=== PATIENT | male | born 1980 | race Caucasian/White ===

== ENCOUNTER → 2021-02-21 13:47 | Outpatient (BNVA) | payer SELFPAY | PROVIDERS: PCP Internal Medicine; Visit Provider Physician Assistant | DX: Z02.79 Encounter for issue of other medical certificate (principal) ==

== ENCOUNTER → 2023-02-07 14:16 | Outpatient (BNVA) | payer SELFPAY | PROVIDERS: PCP Internal Medicine; Visit Provider Physician Assistant | DX: Z02.79 Encounter for issue of other medical certificate (principal) ==

== ENCOUNTER 2023-05-04 09:57 | Outpatient (AMB) | payer OTHER, SELFPAY ==
--- NOTE | 2023-05-04 11:12 | MHC.OFFWIV ---
Intake Vital Signs 05/04/23 11:17 Height 6 ft Weight 228 lb BMI 30.9 BP 122/80 Blood Pressure Location Rt brachial Position Sitting Pulse 75 Pulse Source Pulse Oximeter Temp 98.8 F Temp Source Temporal Artery Scan Pulse Oximetry (%) 98 Oxygen Delivery Method Room Air Intake Visit Reasons: EP Rash Intake Note: pt is here for c/o rash on left side arm 2x months, itchy and if squeezed pus comes out Patient Tobacco Use Status: Current everyday Tobacco user (vape ) Allergies sertraline Adverse Reaction (Unknown, Verified 05/04/23 11:17) felt numb SERTRALINE Adverse Reaction (Unknown, Uncoded 08/22/18 00:00) FELT NUMB Wellbutrin Adverse Reaction (Unknown, Uncoded 11/06/19 00:00) sexual side effects, felt like a robot Do you need a note to return to daycare/school/sports/work: No HPI HPI Comments History of Present Illness Details This is a 42-year-old male who presents to the office today for sick visit. Patient complaining of persistent pruritic rash on his left arm for the past 2 months. He denies any new creams, soaps, detergents, lotions, foods, or medications prior to his symptom onset. He states he has been utilizing [id number] topical steroids, topical antibiotic creams, and antihistamines without much relief. He denies any fevers or chills. He denies any throat swelling, difficulty swallowing, difficulty breathing, or chest tightness/wheezing. PFSH Social History Patient Tobacco Use Status: Current everyday Tobacco user (vape ) Review of Systems Const All systems reviewed & are unremarkable except as noted in HPI and below Reports no additional complaints Eyes Reports no additional complaints ENT Reports no additional complaints Card Reports no additional complaints Resp Reports no additional complaints GI Reports no additional complaints Reports no additional complaints Musc Reports no additional complaints Skin/Breast Reports system reviewed and no additional complaints, except as documented Neuro Reports no additional complaints Psych Reports no additional complaints Endo Reports no additional complaints Octavio/Lymph Reports no additional complaints Aller/Immun Reports no additional complaints Physical Exam Vital Signs: Last Vital Signs Temp 98.8 F 05/04/23 11:17 Pulse 75 05/04/23 11:17 BP 122/80 05/04/23 11:17 Pulse Ox 98 05/04/23 11:17 Oxygen Delivery Method Room Air 05/04/23 11:17 BMI result Body Mass Index 30.9 Const General: cooperative, healthy appearing, no acute distress and well developed Orientation/consciousness: patient oriented x3 HEENT Head: Yes normal to inspection Ears: hearing grossly normal bilaterally General nose exam: Normal external nose present Face and sinus: Yes normal facial exam Mouth: Normal oral and palatal mucosa present Eyes General: appearance normal, both eyes and all related structures Pupils: Equal, round and reactive pupils present EOM: EOMs intact bilaterally Resp Effort & Inspection: normal respiratory effort and no respiratory distress Auscultation: clear to auscultation bilaterally Cardio Rate: regular rate Rhythm: regular rhythm Heart sounds: no gallops, no murmurs and no rubs Peripheral pulses: Peripheral pulses 2+ throughout GI Inspection: No distended Palpation (GI): Soft to palpation and nontender Auscultation: normal bowel sounds Skin Other: There are scattered erythematous maculopapular lesions located on patient's left arm. There is 1 larger lesion measuring approximately 2 cm x 4 cm with overlying scaling. There are other smaller lesions located on the dorsal aspect of his left hand as well as the anterior aspect of his elbow. There is no surrounding erythema or purulent drainage to suggest cellulitis. There is no fluctuance or induration to suggest abscess. There is no lymphangitis streaking. Neuro General: patient oriented x3 Cranial nerves: Yes CN's II-XII intact bilaterally and Yes Equal, round and reactive pupils present Gait exam (Neuro): Normal gait present Motor exam (neuro): 5/5 motor strength present throughout Extrem General: Yes normal to inspection, Yes full ROM and Yes no clubbing, cyanosis or edema Psych Appearance: grossly normal Mental Status: mental status grossly normal Assessment & Plan Assessment & Plan (1) Contact dermatitis: Code(s): L25.9 - Unspecified contact dermatitis, unspecified cause Plan: This is a 42-year-old male presenting to the office complaining of a pruritic rash on his left arm x2 months. History and physical most consistent with atopic dermatitis versus contact/irritant dermatitis. Patient was given a prescription for betamethasone cream twice daily to the area. He was encouraged to call his primary care physician on Saturday for possible dermatology referral for biopsy. Patient's vital signs are stable, his physical exam is otherwise benign, and he is overall nontoxic appearing. Patient is safe to be discharged home at this time. Patient was instructed to follow-up here or go to the emergency room if he were to develop fever/chills, lymphangitic streaking, or persistent/worsening symptoms. Patient verbalizes understanding and he is in agreement with the plan. Medications: New betamethasone dipropionate 0.05% 1 appl topical BID 15 grams 0RF Coding Level of Care Code Est Pt Level 3 (43086) Diagnoses Contact dermatitis L25.9
[2023-05-04 11:17] VITALS: BP 122/80; PULSE 75; TEMP 37.1; O2SAT 98; BMI 30.9
== END 2023-05-04 11:41 | disposition home or self-care (01) ==
PROVIDERS: PCP Internal Medicine; Visit Provider Physician Assistant Medical
DX: L25.9 Unspecified contact dermatitis, unspecified cause (principal)
CPT/HCPCS: 99051; 99213

== ENCOUNTER 2023-11-06 07:32 | Outpatient (AMB) | payer OTHER, SELFPAY ==
--- NOTE | 2023-11-06 07:45 | A.OFFPC_ITS ---
Vital Signs 11/06/23 07:46 Height 6 ft Weight 230 lb BMI 31.2 BP 134/80 Blood Pressure Location Lt brachial Position Sitting Pulse 81 Pulse Source Pulse Oximeter Pulse Oximetry (%) 97 Oxygen Delivery Method Room Air Intake Visit Reasons: Re establish care Intake Note: Pt is here today to re-est care Allergies sertraline Adverse Reaction (Unknown, Verified 01/02/24 08:36) felt numb SERTRALINE Adverse Reaction (Unknown, Uncoded 01/02/24 08:36) FELT NUMB Wellbutrin Adverse Reaction (Unknown, Uncoded 01/02/24 08:36) sexual side effects, felt like a robot Medication List - Last Reconciled 11/06/23 by Laura Courtney MD betamethasone dipropionate 0.05% 1 appl topical BID ketoconazole 200 mg PO DAILY Tobacco use date assessed: 11/06/23 Dental Screening Dental Screen Date: 11/06/23 Did you have a dental visit in the last 12 months?: Yes Did you have a dental problem in the last 6 months where you did not have access to dental care?: No Was dental information given to patient?: Patient has dentist HPI Re establish care HPI Details Pt presents for [employer] PE. Past medical history includes recurrent tinea corporis is treated with ketoconazole usually once a year. Patient reports having chronic anxiety slightly worse over last 2 years. Patient used to see a counselor and tried medication in the past but is not interested in taking medications. He denies depression or suicidal ideation. Patient complains of chronic joint pains, shoulders elbows knees and bilateral hand stiffness lasting a few hours in the morning. Patient also reports chronic carpal tunnel syndrome with the pain and tingling sensation worse at night right more than left. 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 1. Little interest or pleasure in doing things: more than half the days 2. Feeling down, depressed, or hopeless: several days 3. Trouble falling or staying asleep, or sleeping too much: nearly every day 4. Feeling tired or having little energy: several days 5. Poor appetite or overeating: not at all 6. Feeling bad about yourself - or that you are a failure or have let yourself or your family down: several days 7. Trouble concentrating on things, such as reading the newspaper or watching television: not at all 8. Moving or speaking so slowly that other people could have noticed. Or the opposite - being so fidgety or restless that you have been moving around a lot more than usual: not at all 9. Thoughts that you would be better off or of hurting yourself in some way: not at all Total score: 8 Depression Screening Interpretation: Negative Depression Screening Done: Yes 15087 - PHQ-9 Billing: Yes Source: Developed by Drs. Allan Roque, Mariama Trejo, Ernesto Fenton and colleagues, with an educational mili from [employer]. Thrive Questionnaire Date Thrive assessed: 11/06/23 I am a: Patient What is your living situation today?: I have a steady place to live Within the past 12 months, did the food you bought not last and you didn't have the money to get more?: Never true Within the past 12 months, did you worry whether your food would run out before you got money to buy more?: Never true THRIVE Score: 0 AUDIT C Alcohol Use Questionnaire (AUDIT-C) 1. How often do you have a drink containing alcohol?: 4 or more times a week 2. How many drinks containing alcohol do you have on a typical day when you are drinking?: 1 or 2 3. How often do you have six or more drinks on one occasion?: Weekly Total Score: 7 KORY-7 AMB Questionnaire KORY-7 Date KORY - 7 assessed: 11/06/23 Feeling nervous, anxious, or on edge: 3 = Nearly every day Not being able to stop or control worryin = Nearly every day Worrying too much about different things: 3 = Nearly every day Trouble relaxin = More than half the days Being so restless that it is hard to sit still: 0 = Not at all Becoming easily annoyed or irritable: 2 = More than half the days Feeling afraid as if something awful might happen: 3 = Nearly every day Total KORY-7 score (0-4 normal; 5-9 mild; 10-14 moderate; 15-21 severe): 16 Source: Developed by Drs. Allan Roque, Mariama Trejo, Ernesto Fenton and colleagues, with an educational mili from [employer]. Review of Systems Const All systems reviewed & are unremarkable except as noted in HPI and below Reports no additional complaints Eyes Reports no additional complaints ENT Reports no additional complaints Card Reports no additional complaints Resp Reports no additional complaints GI Reports no additional complaints Reports no additional complaints Physical exam (Primary Care) Vital Signs: Last Vital Signs Pulse 81 11/06/23 07:46 BP 134/80 11/06/23 07:46 Pulse Ox 97 11/06/23 07:46 Oxygen Delivery Method Room Air 11/06/23 07:46 BMI result Body Mass Index 31.2 Tobacco/Smoking Status: Tobacco use Status Tobacco use date assessed 11/06/23 11/06/23 07:51 Patient Tobacco Use Status Former Tobacco user (vape ) 11/06/23 08:21 e-Cigarette/Vaping Use Currently Using 11/06/23 08:21 PHQ-9: PHQ-9 Score PHQ-9: Total score 8 11/07/23 08:13 Depression Screening Interpretation: Negative Thrive Assessment: Date of Thrive Assessment Date Thrive assessed 11/06/23 11/06/23 15:34 Const General: no acute distress HENMT Head: Yes normal to inspection Ears: hearing grossly normal bilaterally Face and sinus: Yes normal facial exam Mouth: Normal oral and palatal mucosa present Eyes General: appearance normal, both eyes and all related structures Neck Neck: Yes no lymphadenopathy and Yes supple Resp Effort & Inspection: normal respiratory effort Auscultation: clear to auscultation bilaterally Cardio Rhythm: regular rhythm Heart sounds: S1 normal heart sound present and S2 normal heart sound present GI Inspection: Yes normal to inspection Palpation (GI): Soft to palpation Percussion: Yes normal to percussion Auscultation: normal bowel sounds Extrem Other: Slightly decreased range of motion of both shoulders, there are no hand joint tenderness erythema or swelling, General: Yes no clubbing, cyanosis or edema Right upper extremity: wrist (Tinel's positive b/l) Assessment and Plan Assessment & Plan (1) Annual physical exam: Code(s): Z00.00 - Encounter for general adult medical examination without abnormal findings Plan: Well-balanced diet regular physical activity discussed with the patient he will return for fasting blood work. (2) Arthralgia: Code(s): M25.50 - Pain in unspecified joint Plan: For current arthralgia bilateral hand x-rays will be obtained, arthritis panel will be checked (3) History of appendectomy: Code(s): Z90.49 - Acquired absence of other specified parts of digestive tract (4) Ex-smoker: Code(s): Z87.891 - Personal history of nicotine dependence (5) Tinea corporis: Code(s): B35.4 - Tinea corporis Plan: Continue ketoconazole as needed (6) Anxiety: Code(s): F41.9 - Anxiety disorder, unspecified Plan: Stress management discussed with the patient he has not interested in taking medications. Patient will be referred to counseling. Follow-up in 2 months (7) Eczema: Code(s): L30.9 - Dermatitis, unspecified Plan: Continue betamethasone cream and referred to dermatology (8) Carpal tunnel syndrome on both sides: Code(s): G56.03 - Carpal tunnel syndrome, bilateral upper limbs Plan: Obtain EMG Orders: Orders Comprehensive [place]. Panel Fast 11/09/23 Z00.00 - Encounter for general adult medical examination without abnormal findings, M25.50 - Pain in unspecified joint, Z98.890 - Other specified postprocedural states, Z90.49 - Acquired absence of other specified parts of digestive tract, Z87.891 - Personal history of nicotine dependence C Reactive Protein 11/09/23 Z00.00 - Encounter for general adult medical examination without abnormal findings, M25.50 - Pain in unspecified joint, Z98.890 - Other specified postprocedural states, Z90.49 - Acquired absence of other specified parts of digestive tract, Z87.891 - Personal history of nicotine dependence Complete Blood Count Auto Diff 11/09/23 Z00.00 - Encounter for general adult medical examination without abnormal findings, M25.50 - Pain in unspecified joint, Z98.890 - Other specified postprocedural states, Z90.49 - Acquired absence of other specified parts of digestive tract, Z87.891 - Personal history of nicotine dependence Lipid Panel 11/09/23 Z00.00 - Encounter for general adult medical examination without abnormal findings, M25.50 - Pain in unspecified joint, Z98.890 - Other specified postprocedural states, Z90.49 - Acquired absence of other specified parts of digestive tract, Z87.891 - Personal history of nicotine dependence Rheumatoid Factor 11/09/23 Z00.00 - Encounter for general adult medical examination without abnormal findings, M25.50 - Pain in unspecified joint, Z98.890 - Other specified postprocedural states, Z90.49 - Acquired absence of other specified parts of digestive tract, Z87.891 - Personal history of nicotine dependence UA w Microscopic 11/09/23 Z00.00 - Encounter for general adult medical examination without abnormal findings, M25.50 - Pain in unspecified joint, Z98.890 - Other specified postprocedural states, Z90.49 - Acquired absence of other specified parts of digestive tract, Z87.891 - Personal history of nicotine dependence NE electromyogram (EMG) 11/06/23 G56.03 - Carpal tunnel syndrome, bilateral upper limbs Hepatitis B,C Profile 11/09/23 M25.50 - Pain in unspecified joint Cyclic Citrullinated Peptide 11/09/23 M25.50 - Pain in unspecified joint DONTAE Reflex Titer and Pattern 11/09/23 M25.50 - Pain in unspecified joint Referrals Counseling Referral F41.9 - Anxiety disorder, unspecified Dermatology Referral L30.9 - Dermatitis, unspecified Medications: New ketoconazole 200 mg PO DAILY 5 tabs 0RF ketoconazole 200 mg PO DAILY 5 tabs 3RF Refilled betamethasone dipropionate 0.05% 1 appl topical BID 15 grams 0RF Coding Level of Care Code New Pt Prev Care 40-64y(58628) Diagnoses Annual physical exam Z00.00 Arthralgia M25.50 History of appendectomy Z90.49 Ex-smoker Z87.891 Tinea corporis B35.4 Anxiety F41.9 Eczema L30.9 Carpal tunnel syndrome on both sides G56.03
[2023-11-06 07:46] VITALS: BP 134/80; PULSE 81; O2SAT 97; BMI 31.2
== END 2023-11-06 08:40 | disposition home or self-care (01) ==
PROVIDERS: PCP Internal Medicine; Visit Provider Internal Medicine
DX: Z00.00 Encounter for general adult medical examination without abnormal findings (principal); M25.50 Pain in unspecified joint; Z90.49 Acquired absence of other specified parts of digestive tract; Z87.891 Personal history of nicotine dependence; B35.4 Tinea corporis; F41.9 Anxiety disorder, unspecified; L30.9 Dermatitis, unspecified; G56.03 Carpal tunnel syndrome, bilateral upper limbs
CPT/HCPCS: 99386

== ENCOUNTER 2023-11-09 09:00 | Outpatient (REF) | payer OTHER, SELFPAY ==
--- NOTE | ~2023-11-09 | XR_ITS ---
EXAMINATION: XR HAND, RIGHT CLINICAL INFORMATION: Pain. COMPARISON: None available. TECHNIQUE: PA, lateral, and oblique views of the right hand. FINDINGS: The bones and soft tissues are normal. No acute fracture or dislocation is seen. There is old, healed fracture of the shaft of the right fifth metacarpal bone, with mild residual angulation and bony remodeling. Alignment is anatomic. There is a neutral ulnar variance. Joint spaces are maintained. No erosions or soft tissue calcifications. XR/XR hand RT min 3V IMPRESSION: Unremarkable right hand. EXAMINATION: XR HAND, LEFT CLINICAL INFORMATION: Pain. COMPARISON: None available. TECHNIQUE: PA, lateral, and oblique views of the left hand. FINDINGS: The bones and soft tissues are normal. No fracture. Alignment is anatomic. Joint spaces are maintained. No erosions or soft tissue calcifications. IMPRESSION: Normal left hand.
--- NOTE | ~2023-11-09 | XR_ITS ---
EXAMINATION: XR HAND, RIGHT CLINICAL INFORMATION: Pain. COMPARISON: None available. TECHNIQUE: PA, lateral, and oblique views of the right hand. FINDINGS: The bones and soft tissues are normal. No acute fracture or dislocation is seen. There is old, healed fracture of the shaft of the right fifth metacarpal bone, with mild residual angulation and bony remodeling. Alignment is anatomic. There is a neutral ulnar variance. Joint spaces are maintained. No erosions or soft tissue calcifications. XR/XR hand LT min 3V IMPRESSION: Unremarkable right hand. EXAMINATION: XR HAND, LEFT CLINICAL INFORMATION: Pain. COMPARISON: None available. TECHNIQUE: PA, lateral, and oblique views of the left hand. FINDINGS: The bones and soft tissues are normal. No fracture. Alignment is anatomic. Joint spaces are maintained. No erosions or soft tissue calcifications. IMPRESSION: Normal left hand.
[2023-11-09 11:10] LABS: MANUAL DIFF FLAG NO
[2023-11-09 11:21] LABS: Basophils Absolute Auto 0.1 X10*3/uL (0.0-0.2); Basophils Percent Auto 1.2 % (0-2); Eosinophils Absolute Auto 0.3 X10*3/uL (0.0-0.4); Eosinophils Percent Auto 4.3 % (0-4); Hemoglobin 15.4 g/dl (14.0-18.0); Imm Gran Abs Auto 0.07 X10*3/uL (0.00-0.03); Lymphocytes Absolute Auto 1.9 X10*3/uL (1.2-4.9); Lymphocytes Percent Auto 26.7 % (20-40); Mean Corpuscular Hemoglobin 30.3 pg (27.0-33.0); Mean Corpuscular Volume 86.4 fL (80.0-98.0); Mean Platelet Volume 11.4 fL (9.4-12.4); Monocytes Absolute Auto 0.7 X10*3/uL (0.1-1.2); Monocytes Percent Auto 10.2 % (2-11); Neutrophils Absolute Auto 4.1 x10*3/uL (2.0-8.3); Neutrophils Percent Auto 56.6 % (45-73); Platelet Count 201 X10*3/uL (160-400); Red Blood Count 5.09 X10*6/uL (4.60-5.80); Red Cell Distribution Width 13.3 % (11.0-16.0); White Blood Count 7.3 X10*3/uL (4.8-10.8)
[2023-11-09 11:29] LABS: Appearance Urine Clear; Color Urine Yellow; Glucose Urine UA Negative (Negative); Leukocyte Esterase Urine Negative (Negative); Nitrite Urine Negative (Negative); PH 7.5 (5.0-9.0); Urine Blood Negative (Negative); Urine Ketones Negative (Negative); Urine Protein Trace mg/dL (Neg-Trace)
[2023-11-09 11:36] LABS: Bacteria Urine None Seen (None Seen); Hyaline Casts Urine 0-2 /LPF (0-2); RBC Urine 0-2 /HPF (0-2); Squamous Epithelial Cell Urine 0-2 /HPF (0-2); WBC Urine 0-5 /HPF (0-5)
[2023-11-09 11:46] LABS: Rheumatoid Factor < 13.0 IU/mL (<15.0)
[2023-11-09 11:51] LABS: Alanine Aminotransferase 40 U/L (0-40); Albumin Level 4.5 g/dL (3.5-5.0); Alkaline Phosphatase 46 U/L (39-117); Anion Gap 14 (12-20); Aspartate Amino Transferase 25 U/L (5-37); Bilirubin Total 0.6 mg/dL (0.0-1.0); Blood Urea Nitrogen 12 mg/dL (9-16); C Reactive Protein < 0.10 mg/dL (< or = 0.50); Calcium 9.7 mg/dL (8.4-10.2); Carbon Dioxide 26 mmol/L (22-29); Chloride 106 mmol/L (96-108); Cholesterol 273 mg/dL (<200); Estimated Glomerular Filt Rate > 60; Glucose Fasting 95 mg/dL (60-99); HDL Cholesterol 44 mg/dL (>40); Potassium 4.3 mmol/L (3.3-5.1); Sodium 142 mmol/L (135-145); Total Protein 7.5 g/dL (6.5-8.0); Triglycerides 415 mg/dL (<150)
[2023-11-11 04:33] LABS: HBc Num1 0.09 S/CO (0.00-0.79); HBsAGNum1 0.37 S/CO (0.00-0.99); Hepatitis B Core Antibody Nonreactive (Nonreactive); Hepatitis B Surface Antigen Negative (Negative); ~HepC Num1 0.14 S/CO (0.00-0.79); ~Hepatitis B Surface Antibody NONREACTIVE (Nonreactive); ~Hepatitis C Antibody Nonreactive (Nonreactive)
[2023-11-11 18:19] LABS: Cyclic Citrullinated Peptide <16 UNITS
[2023-11-14 09:53] LABS: Anti Nuclear Antibody Screen POSITIVE (NEGATIVE); Anti Nuclear Antibody Titer 1:40 titer
== END 2023-11-09 09:01 | disposition home or self-care (01) ==
LOC: HO.HMGCX 09:00
PROVIDERS: PCP Internal Medicine; Visit Provider Internal Medicine
DX: M79.641 Pain in right hand (principal); M79.642 Pain in left hand; Z98.890 Other specified postprocedural states; Z90.49 Acquired absence of other specified parts of digestive tract; Z87.891 Personal history of nicotine dependence; Z13.6 Encounter for screening for cardiovascular disorders; Z00.00 Encounter for general adult medical examination without abnormal findings
CPT/HCPCS: 36415; 73130; 80053; 80061; 81001; 85025; 86038; 86039; 86140; 86200; 86431; 86704; 86706; 86803; 87340

== ENCOUNTER 2023-11-22 08:16 | Outpatient (REF) | payer OTHER, SELFPAY ==
--- NOTE | 2023-11-22 08:23 | EMG_ITS ---
Chief complaint: Wakes up with hand numbness, can occur at work as well, especially with some repetitive motion, bilateral. Right worse than left. Positive DONTAE, waiting to see Rheumatology. Reason for referral: Evaluate for Carpal Tunnel Syndrome Referred by: Dr. Courtney Procedure done: Bilateral upper extremities NCS/EMG Precautions and/or limitations: None The limb temperature was monitored continuously and remained between 32-36 degrees C during the performance of the NCS. Nerve Conduction Studies Anti Sensory Summary Table ?Stim Site NR Onset (ms) Norm Onset (ms) Peak (ms) Norm Peak (ms) O-P Amp (?V) Norm O-P Amp Site1 Site2 Delta-0 (ms) Dist (cm) Rob (m/s) Norm Rob (m/s) Left Median Anti Sensory (2nd Digit) Wrist ? 2.7 3.4 <3.6 34.2 >10 Wrist 2nd Digit 2.7 14.0 52 Right Median Anti Sensory (2nd Digit) Wrist ? 2.8 3.7 <3.6 26.5 >10 Wrist 2nd Digit 2.8 14.0 50 Left Ulnar Anti Sensory (5th Digit) Wrist ? 2.4 2.9 <3.7 30.9 >15.0 Wrist 5th Digit 2.4 14.0 58 Right Ulnar Anti Sensory (5th Digit) Wrist ? 2.2 2.8 <3.7 35.1 >15.0 Wrist 5th Digit 2.2 14.0 64 Motor Summary Table ?Stim Site NR Onset (ms) Norm Onset (ms) O-P Amp (mV) Norm O-P Amp iAmp (mV) Amp (1st) (%) Site1 Site2 Delta-0 (ms) Dist (cm) Rob (m/s) Norm Rob (m/s) Left Median Motor (Abd Poll Brev) Wrist ? 3.6 <3.9 7.6 >4.5 9.1 100.0 Elbow Wrist 4.3 24.0 56 >45 Elbow ? 7.9 8.9 10.6 117.1 Right Median Motor (Abd Poll Brev) Wrist ? 3.6 <3.9 13.1 >4.5 14.8 100.0 Elbow Wrist 4.5 23.0 51 >45 Elbow ? 8.1 11.3 13.6 86.3 Left Ulnar Motor (Abd Dig Minimi) Wrist ? 2.7 <3.0 8.3 >5 9.0 100.0 B Elbow Wrist 3.5 21.0 60 >45 B Elbow ? 6.2 7.8 8.6 94.0 A Elbow B Elbow 1.5 10.0 67 >45 A Elbow ? 7.7 7.9 8.8 95.2 Right Ulnar Motor (Abd Dig Minimi) Wrist ? 2.6 <3.0 10.8 >5 12.1 100.0 B Elbow Wrist 3.8 24.0 63 >45 B Elbow ? 6.4 9.2 10.6 85.2 A Elbow B Elbow 1.2 10.0 83 >45 A Elbow ? 7.6 8.5 10.1 78.7 Comparison Summary Table ?Stim Site NR Peak (ms) Norm Peak (ms) P-T Amp (?V) Site1 Site2 Delta-P (ms) Norm Delta (ms) Left Median/Radial Dig I Comparison (Digit 1 - 10cm) Median ? 2.8 <2.9 46.1 Median Radial -0.3 Radial ? 3.1 <2.8 38.2 Right Median/Radial Dig I Comparison (Digit 1 - 10cm) Median ? 3.0 <2.9 42.2 Median Radial 0.6 Radial ? 2.4 <2.8 17.5 EMG ?Side Muscle Nerve Root Ins Act Fibs Psw Amp Dur Poly Recrt Int Pat Comment Right 1stDorInt Ulnar C8-T1 Nml Nml Nml Nml Nml 0 Nml Complete Right FlexCarRad Median C6-7 Nml Nml Nml Nml Nml 0 Nml Complete Right Biceps Musculocut C5-6 Nml Nml Nml Nml Nml 0 Nml Complete Right Triceps Radial C6-7-8 Nml Nml Nml Nml Nml 0 Nml Complete Right Deltoid Axillary C5-6 Nml Nml Nml Nml Nml 0 Nml Complete Left 1stDorInt Ulnar C8-T1 Nml Nml Nml Nml Nml 0 Nml Complete Left FlexCarRad Median C6-7 Nml Nml Nml Nml Nml 0 Nml Complete Left Biceps Musculocut C5-6 Nml Nml Nml Nml Nml 0 Nml Complete Left Triceps Radial C6-7-8 Nml Nml Nml Nml Nml 0 Nml Complete Left Deltoid Axillary C5-6 Nml Nml Nml Nml Nml 0 Nml Complete FINDINGS: Right median sensory nerve showed prolonged peak latency. Significant interlatency difference seen between right median and radial sensory nerves. All other nerves tested were within normal. Concentric needle EMG was performed in selected muscles of the bilateral upper extremities. Study did not reveal signs of electric abnormalities as shown in the table below. IMPRESSION: 1. This is an abnormal study. 2. There is electrodiagnostic evidence for right mild median neuropathy at the wrist, consistent with carpal tunnel syndrome. 3. There is no electrodiagnostic evidence for ulnar neuropathy, brachial plexopathy, or cervical radiculopathy. 4. There is no electrodiagnostic evidence for median neuropathy on the left. Thank you for your kind referral. Raisa Broderick MD, JORGE Board Certified, [place] [employer] and [employer] (ABPMR) Board Certified, [place] [employer] Electro[employer]ostic [employer] (ABEM) CODIN 34186 x 2 MTDD
== END 2023-11-22 08:17 | disposition home or self-care (01) ==
LOC: HO.NEURO 08:16
PROVIDERS: PCP Internal Medicine; Visit Provider Internal Medicine
DX: G56.03 Carpal tunnel syndrome, bilateral upper limbs (principal)
CPT/HCPCS: 95886; 95911

== ENCOUNTER → 2023-11-22 08:23 | Outpatient (BNV) | payer OTHER, SELFPAY | PROVIDERS: PCP Internal Medicine; Visit Provider Physical Medicine & Rehabilitation | DX: G56.03 Carpal tunnel syndrome, bilateral upper limbs (principal); G56.13 Other lesions of median nerve, bilateral upper limbs | CPT/HCPCS: 95886; 95911 ==

== ENCOUNTER 2023-12-05 11:50 | Outpatient (AMB) | payer OTHER, SELFPAY ==
[2023-12-05 12:18] VITALS: BP 120/74; PULSE 93; O2SAT 97; BMI 31.2
--- NOTE | 2023-12-05 12:18 | A.OFFPC_ITS ---
Vital Signs 12/05/23 12:18 Height 6 ft Weight 230 lb BMI 31.2 BP 120/74 Blood Pressure Location Rt brachial Position Sitting Pulse 93 Pulse Source Pulse Oximeter Pulse Oximetry (%) 97 Oxygen Delivery Method Room Air Intake Visit Reasons: Follow up after labs discuss treatment Intake Note: Pt is here today for a follow up visit on lab results. Allergies sertraline Adverse Reaction (Unknown, Verified 12/05/23 12:47) felt numb SERTRALINE Adverse Reaction (Unknown, Uncoded 12/05/23 12:47) FELT NUMB Wellbutrin Adverse Reaction (Unknown, Uncoded 12/05/23 12:47) sexual side effects, felt like a robot Medication List - Last Reconciled 12/05/23 by Laura Courtney MD betamethasone dipropionate 0.05% 1 appl topical BID Tobacco use date assessed: 12/05/23 Dental Screening Dental Screen Date: 11/06/23 HPI Follow up after labs discuss treatment HPI Details Patient presents for the follow-up of blood work. He reports eating red meat regularly and drinking alcohol daily. Patient reports general body aches including both shoulders and hands preventing him from getting restful sleep. He has an appointment with compressed yeast supervisor next month. Patient denies increase stress and feels depressed because of his chronic body pain, but denies suicidal ideation. 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 Allan Roque, Mariama Trejo, Ernesto Fenton and colleagues, with an educational mili from [employer] Review of Systems Const All systems reviewed & are unremarkable except as noted in HPI and below Eyes Reports no additional complaints ENT Reports no additional complaints Resp Reports no additional complaints GI Reports no additional complaints Reports no additional complaints Physical exam (Primary Care) Vital Signs: Last Vital Signs Pulse 93 12/05/23 12:18 BP 120/74 12/05/23 12:18 Pulse Ox 97 12/05/23 12:18 Oxygen Delivery Method Room Air 12/05/23 12:18 BMI result Body Mass Index 31.2 Tobacco/Smoking Status: Tobacco use Status Tobacco use date assessed 12/05/23 12/05/23 12:49 Patient Tobacco Use Status Former Tobacco user (vape ) 12/05/23 12:18 e-Cigarette/Vaping Use Currently Using 12/05/23 12:18 Thrive Assessment: Date of Thrive Assessment Date Thrive assessed 11/06/23 12/05/23 12:18 Const General: no acute distress Neck Neck: Yes supple Resp Effort & Inspection: normal respiratory effort Auscultation: clear to auscultation bilaterally Cardio Rhythm: regular rhythm Heart sounds: S1 normal heart sound present and S2 normal heart sound present Assessment and Plan Assessment & Plan (1) Hyperlipidemia: Code(s): E78.5 - Hyperlipidemia, unspecified Plan: Low-cholesterol diet increase physical activity fish oil supplement discussed with the patient. He was advised to avoid drinking alcohol daily. Lipid profile will be checked in 3 months (2) Arthralgia: Code(s): M25.50 - Pain in unspecified joint Plan: For dental arthralgia patient had negative arthritis workup except weakly positive DONTAE and negative x-ray of both hands. He has an appointment with compressed yeast supervisor next month Orders: Orders Lipid Panel 3 Months E78.5 - Hyperlipidemia, unspecified LDL Cholesterol Direct 3 Months E78.5 - Hyperlipidemia, unspecified Coding Level of Care Code Est Pt Level 3 (26913) Diagnoses Hyperlipidemia E78.5 Arthralgia M25.50
== END 2023-12-05 13:36 | disposition home or self-care (01) ==
PROVIDERS: PCP Internal Medicine; Visit Provider Internal Medicine
DX: E78.5 Hyperlipidemia, unspecified (principal); M25.50 Pain in unspecified joint
CPT/HCPCS: 99213

== ENCOUNTER 2024-01-02 08:33 | Outpatient (AMB) | payer OTHER, SELFPAY ==
--- NOTE | 2024-01-02 08:35 | MHC.OFFVIS ---
Vital Signs 01/02/24 08:37 Height 6 ft Weight 226 lb 3.108 oz BMI 30.7 BP 102/64 Blood Pressure Location Rt brachial Position Sitting Pulse 98 Pulse Source Pulse Oximeter Pulse Oximetry (%) 98 Oxygen Delivery Method Room Air Intake Visit Reasons: Joint Pain/CM Intake Note: New patient presents today for +DONTAE consult. C/o joint pain primarily hiren hand, hiren wrist, hiren shoulder, and right knee pain Symptoms started approx 15 years ago, shoulders and right knee began about 8 months ago Has tried cortisone injection on both wrists, OTC pain killers , braces, topicals, vibrating crystals, vitamins, hot and cold compressions EMG done at [facility] about a month ago. 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 The condition started about 15 years ago with bilateral hand and wrist pain, the pain is usually worse with minor activity such as holding his phone but he has no issues with doing more strenuous activity such as moving boxes. He has tried numerous therapies over the years such as [id number]. Killers like Tylenol Advil, Aleve, he also tried CBD oil, vibrating crystals, glucosamine, fish oil, hot and cold compresses. None of that helped. He tried wrist splints they did not help. He also received injections on the palmar aspect of his wrists which did not help, 1 injection cause numbness so he stopped getting injections. Stated that what sometimes helps is hand and wrist compresses at night. What got him concerned is bilateral shoulder stiffness and cracking with certain movements that started about 8 months ago also intermittent right knee cracking and pain. Denies any joint swelling. Denies any morning stiffness. States that he gets a rash in areas where he sweats 2 to 3 times a year that rapidly goes away with ketoconazole. He is unaware of any family history of an autoimmune rheumatic disease. Denies any history of DVT/PE. Denies any fevers or weight loss. 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 Patient Tobacco Use Status: Former Tobacco user (vape ) e-Cigarette/Vaping Use: Currently Using service: No Current occupational status: employed Cognitive needs: No Hearing needs: No Vision needs: Yes Review of Systems Const Denies fever(s), Denies weakness and Denies weight loss Resp Denies cough Musc Reports arthralgias, Denies joint swelling and Denies stiffness Neuro Denies weakness Psych Reports anxiety Physical Exam Vital Signs: Last Vital Signs Pulse 98 01/02/24 08:37 BP 102/64 01/02/24 08:37 Pulse Ox 98 01/02/24 08:37 Oxygen Delivery Method Room Air 01/02/24 08:37 BMI result Body Mass Index 30.7 Const General: cooperative, healthy appearing and comfortable Nutritional Appearance: overweight Orientation/consciousness: patient oriented x3 Limitations: no limitations HEENT Head: Yes normocephalic and Yes atraumatic Mouth: moist mucous membranes Resp Effort & Inspection: normal respiratory effort and able to speak in complete sentences Auscultation: clear to auscultation bilaterally Cardio Rate: regular rate Rhythm: regular rhythm Skin General skin exam: no rashes or lesions noted Neuro General: patient oriented x3 Extrem Other: No active synovitis 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 Normal nailfold capillaroscopy Normal range of motion of hands, wrists, elbows and shoulders without pain Positive empty can test on the right Negative Speed's test on the right Negative infraspinatus test bilaterally Positive empty can test on the left No knee pain with full flexion and extension bilaterally No knee crepitus today bilaterally Assessment & Plan Assessment & Plan (1) DONTAE positive: Code(s): R76.8 - Other specified abnormal immunological findings in serum Category: Medical Plan: This is a 43-year-old male who presents for evaluation of a positive DONTAE in the setting of polyarthralgia. He has positive DONTAE 1-40 in a dfs pattern. Labs showed negative DONTAE/RF with normal CRP. Do not see any evidence of an underlying autoimmune rheumatic disease upon evaluation. DONTAE 1-40 is generally considered negative and is of unclear significance. There might be some component of minimal degenerative arthritis as well as mild rotator cuff tendinopathy. Possible fibromyalgia. Will check x-rays of involved joints. Follow-up in 6 weeks Plan I spent 47 minutes reviewing patient's chart, evaluating patient, ordering diagnostic workup, counseling patient and documenting in the chart Orders: Orders XR cervical spine 4V Today M25.50 - Pain in unspecified joint XR shoulder LT min 2V Today M25.50 - Pain in unspecified joint XR shoulder RT min 2V Today M25.50 - Pain in unspecified joint XR knee LT 3V Today M25.50 - Pain in unspecified joint XR knee RT 3V Today M25.50 - Pain in unspecified joint XR knee standing BI Today M25.50 - Pain in unspecified joint Coding Level of Care Code New Pt Level 4 (67667) Diagnoses DONTAE positive R76.8
[2024-01-02 08:37] VITALS: BP 102/64; PULSE 98; O2SAT 98; BMI 30.7
== END 2024-01-02 09:36 | disposition home or self-care (01) ==
PROVIDERS: PCP Internal Medicine; Visit Provider Student in an Organized Health Care Education/Training Program
DX: R76.8 Other specified abnormal immunological findings in serum (principal)
CPT/HCPCS: 99204

== ENCOUNTER → 2024-01-02 08:33 | Outpatient (BNVA) | payer OTHER, SELFPAY | PROVIDERS: PCP Internal Medicine; Visit Provider Student in an Organized Health Care Education/Training Program ==

== ENCOUNTER 2024-01-29 14:31 | Outpatient (REF) | payer OTHER, SELFPAY ==
--- NOTE | ~2024-01-29 | XR_ITS ---
EXAMINATION: XR CERVICAL SPINE XR SHOULDER, BILATERAL XR KNEE, BILATERAL CLINICAL INFORMATION: Pain in unspecified joint. COMPARISON: None available. TECHNIQUE: 5 views of the cervical spine, 4 views of each shoulder, AP standing, tunnel, lateral and sunrise views of each knee. FINDINGS: Cervical Spine: Mild degenerative changes with loss of disc space height at C5-C6. Limited visualization of C7 due to overlying bony and soft tissue structures. Alignment preserved. Left Shoulder: Mild osteoarthritic changes in the acromioclavicular joint. Glenohumeral alignment preserved. No abnormal soft tissue calcifications appreciated adjacent to the humeral head. Mild hypertrophic change along the inferior aspect of the glenoid. Right Shoulder: Mild osteoarthritic changes in the acromioclavicular joint. Glenohumeral alignment preserved. Amorphous soft tissue calcification adjacent to the right greater tuberosity suggests rotator cuff pathology. Right Knee: Moderate right joint effusion. Mild narrowing of the medial compartment with tiny medial marginal and posterior patellar osteophytes. Left Knee: Moderate joint effusion. Mild narrowing of the medial compartment with tiny medial marginal and posterior patellar osteophytes. XR/XR shoulder RT min 2V IMPRESSION: 1. Mild cervical spondylosis most notable at C5-C6. 2. Mild degenerative changes in the left shoulder. 3. Amorphous soft tissue calcification adjacent to the right greater tuberosity suggests rotator cuff pathology. Mild degenerative changes in the right glenohumeral and acromioclavicular joints. 4. Moderate joint effusions in the bilateral knees with mild degenerative changes.
--- NOTE | ~2024-01-29 | XR_ITS ---
EXAMINATION: XR CERVICAL SPINE XR SHOULDER, BILATERAL XR KNEE, BILATERAL CLINICAL INFORMATION: Pain in unspecified joint. COMPARISON: None available. TECHNIQUE: 5 views of the cervical spine, 4 views of each shoulder, AP standing, tunnel, lateral and sunrise views of each knee. FINDINGS: Cervical Spine: Mild degenerative changes with loss of disc space height at C5-C6. Limited visualization of C7 due to overlying bony and soft tissue structures. Alignment preserved. Left Shoulder: Mild osteoarthritic changes in the acromioclavicular joint. Glenohumeral alignment preserved. No abnormal soft tissue calcifications appreciated adjacent to the humeral head. Mild hypertrophic change along the inferior aspect of the glenoid. Right Shoulder: Mild osteoarthritic changes in the acromioclavicular joint. Glenohumeral alignment preserved. Amorphous soft tissue calcification adjacent to the right greater tuberosity suggests rotator cuff pathology. Right Knee: Moderate right joint effusion. Mild narrowing of the medial compartment with tiny medial marginal and posterior patellar osteophytes. Left Knee: Moderate joint effusion. Mild narrowing of the medial compartment with tiny medial marginal and posterior patellar osteophytes. XR/XR cervical spine 4V IMPRESSION: 1. Mild cervical spondylosis most notable at C5-C6. 2. Mild degenerative changes in the left shoulder. 3. Amorphous soft tissue calcification adjacent to the right greater tuberosity suggests rotator cuff pathology. Mild degenerative changes in the right glenohumeral and acromioclavicular joints. 4. Moderate joint effusions in the bilateral knees with mild degenerative changes.
--- NOTE | ~2024-01-29 | XR_ITS ---
EXAMINATION: XR CERVICAL SPINE XR SHOULDER, BILATERAL XR KNEE, BILATERAL CLINICAL INFORMATION: Pain in unspecified joint. COMPARISON: None available. TECHNIQUE: 5 views of the cervical spine, 4 views of each shoulder, AP standing, tunnel, lateral and sunrise views of each knee. FINDINGS: Cervical Spine: Mild degenerative changes with loss of disc space height at C5-C6. Limited visualization of C7 due to overlying bony and soft tissue structures. Alignment preserved. Left Shoulder: Mild osteoarthritic changes in the acromioclavicular joint. Glenohumeral alignment preserved. No abnormal soft tissue calcifications appreciated adjacent to the humeral head. Mild hypertrophic change along the inferior aspect of the glenoid. Right Shoulder: Mild osteoarthritic changes in the acromioclavicular joint. Glenohumeral alignment preserved. Amorphous soft tissue calcification adjacent to the right greater tuberosity suggests rotator cuff pathology. Right Knee: Moderate right joint effusion. Mild narrowing of the medial compartment with tiny medial marginal and posterior patellar osteophytes. Left Knee: Moderate joint effusion. Mild narrowing of the medial compartment with tiny medial marginal and posterior patellar osteophytes. XR/XR knee RT 4V IMPRESSION: 1. Mild cervical spondylosis most notable at C5-C6. 2. Mild degenerative changes in the left shoulder. 3. Amorphous soft tissue calcification adjacent to the right greater tuberosity suggests rotator cuff pathology. Mild degenerative changes in the right glenohumeral and acromioclavicular joints. 4. Moderate joint effusions in the bilateral knees with mild degenerative changes.
--- NOTE | ~2024-01-29 | XR_ITS ---
EXAMINATION: XR CERVICAL SPINE XR SHOULDER, BILATERAL XR KNEE, BILATERAL CLINICAL INFORMATION: Pain in unspecified joint. COMPARISON: None available. TECHNIQUE: 5 views of the cervical spine, 4 views of each shoulder, AP standing, tunnel, lateral and sunrise views of each knee. FINDINGS: Cervical Spine: Mild degenerative changes with loss of disc space height at C5-C6. Limited visualization of C7 due to overlying bony and soft tissue structures. Alignment preserved. Left Shoulder: Mild osteoarthritic changes in the acromioclavicular joint. Glenohumeral alignment preserved. No abnormal soft tissue calcifications appreciated adjacent to the humeral head. Mild hypertrophic change along the inferior aspect of the glenoid. Right Shoulder: Mild osteoarthritic changes in the acromioclavicular joint. Glenohumeral alignment preserved. Amorphous soft tissue calcification adjacent to the right greater tuberosity suggests rotator cuff pathology. Right Knee: Moderate right joint effusion. Mild narrowing of the medial compartment with tiny medial marginal and posterior patellar osteophytes. Left Knee: Moderate joint effusion. Mild narrowing of the medial compartment with tiny medial marginal and posterior patellar osteophytes. XR/XR shoulder LT min 2V IMPRESSION: 1. Mild cervical spondylosis most notable at C5-C6. 2. Mild degenerative changes in the left shoulder. 3. Amorphous soft tissue calcification adjacent to the right greater tuberosity suggests rotator cuff pathology. Mild degenerative changes in the right glenohumeral and acromioclavicular joints. 4. Moderate joint effusions in the bilateral knees with mild degenerative changes.
--- NOTE | ~2024-01-29 | XR_ITS ---
EXAMINATION: XR CERVICAL SPINE XR SHOULDER, BILATERAL XR KNEE, BILATERAL CLINICAL INFORMATION: Pain in unspecified joint. COMPARISON: None available. TECHNIQUE: 5 views of the cervical spine, 4 views of each shoulder, AP standing, tunnel, lateral and sunrise views of each knee. FINDINGS: Cervical Spine: Mild degenerative changes with loss of disc space height at C5-C6. Limited visualization of C7 due to overlying bony and soft tissue structures. Alignment preserved. Left Shoulder: Mild osteoarthritic changes in the acromioclavicular joint. Glenohumeral alignment preserved. No abnormal soft tissue calcifications appreciated adjacent to the humeral head. Mild hypertrophic change along the inferior aspect of the glenoid. Right Shoulder: Mild osteoarthritic changes in the acromioclavicular joint. Glenohumeral alignment preserved. Amorphous soft tissue calcification adjacent to the right greater tuberosity suggests rotator cuff pathology. Right Knee: Moderate right joint effusion. Mild narrowing of the medial compartment with tiny medial marginal and posterior patellar osteophytes. Left Knee: Moderate joint effusion. Mild narrowing of the medial compartment with tiny medial marginal and posterior patellar osteophytes. XR/XR knee LT 4V IMPRESSION: 1. Mild cervical spondylosis most notable at C5-C6. 2. Mild degenerative changes in the left shoulder. 3. Amorphous soft tissue calcification adjacent to the right greater tuberosity suggests rotator cuff pathology. Mild degenerative changes in the right glenohumeral and acromioclavicular joints. 4. Moderate joint effusions in the bilateral knees with mild degenerative changes.
== END 2024-01-29 14:32 | disposition home or self-care (01) ==
LOC: HO.XRAY 14:31
PROVIDERS: PCP Internal Medicine; Visit Provider Student in an Organized Health Care Education/Training Program
DX: M54.2 Cervicalgia (principal); M25.511 Pain in right shoulder; M25.512 Pain in left shoulder; M25.561 Pain in right knee; M25.562 Pain in left knee
CPT/HCPCS: 72050; 73030; 73564

== ENCOUNTER 2024-02-13 12:21 | Outpatient (AMB) | payer OTHER, SELFPAY ==
--- NOTE | 2024-02-13 12:38 | MHC.OFFVIS ---
Vital Signs 02/13/24 12:42 Height 6 ft Weight 218 lb 7.649 oz BMI 29.6 BP 122/70 Blood Pressure Location Rt brachial Position Sitting Pulse 98 Pulse Source Pulse Oximeter Pulse Oximetry (%) 99 Oxygen Delivery Method Room Air Intake Visit Reasons: DONTAE +ve/CM Intake Note: Patient presents for DONTAE. Allergies sertraline Adverse Reaction (Unknown, Verified 02/13/24 12:41) felt numb SERTRALINE Adverse Reaction (Unknown, Uncoded 01/02/24 08:36) FELT NUMB Wellbutrin Adverse Reaction (Unknown, Uncoded 01/02/24 08:36) sexual side effects, felt like a robot Medication List - Last Reconciled 02/13/24 by Torrie Rush MD betamethasone dipropionate 0.05% 1 appl topical BID venlafaxine ER (Effexor XR) 75 mg PO DAILY HPI Comments Details: Patient returns for follow-up after completion of his diagnostic workup. States that he continues to feel about the same. Intermittent episodes of shoulder pain, knee pain, the usually last 2-3 days then self-resolved. He would take aspirin or Aleve as needed for the pain. Has not noticed much swelling Initial history: This is a 43-year-old male who presents for evaluation of positive DONTAE in the setting of polyarthralgias. The condition started about 15 years ago with bilateral hand and wrist pain, the pain is usually worse with minor activity such as holding his phone but he has no issues with doing more strenuous activity such as moving boxes. He has tried numerous therapies over the years such as [id number]. Killers like Tylenol Advil, Aleve, he also tried CBD oil, vibrating crystals, glucosamine, fish oil, hot and cold compresses. None of that helped. He tried wrist splints they did not help. He also received injections on the palmar aspect of his wrists which did not help, 1 injection cause numbness so he stopped getting injections. Stated that what sometimes helps is hand and wrist compresses at night. What got him concerned is bilateral shoulder stiffness and cracking with certain movements that started about 8 months ago also intermittent right knee cracking and pain. Denies any joint swelling. Denies any morning stiffness. States that he gets a rash in areas where he sweats 2 to 3 times a year that rapidly goes away with ketoconazole. He is unaware of any family history of an autoimmune rheumatic disease. Denies any history of DVT/PE. Denies any fevers or weight loss. 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 Tobacco Use Status: Former Tobacco user (vape ) e-Cigarette/Vaping Use: Currently Using service: No Current occupational status: employed Cognitive needs: No Hearing needs: No Vision needs: Yes Review of Systems Const Denies fever(s), Denies weakness and Denies weight loss Resp Denies cough Musc Reports arthralgias, Denies joint swelling and Denies stiffness Neuro Denies weakness Psych Reports anxiety Physical Exam Vital Signs: Last Vital Signs Pulse 98 02/13/24 12:42 BP 122/70 02/13/24 12:42 Pulse Ox 99 02/13/24 12:42 Oxygen Delivery Method Room Air 02/13/24 12:42 BMI result Body Mass Index 29.6 Const General: cooperative, healthy appearing and comfortable Nutritional Appearance: overweight Orientation/consciousness: patient oriented x3 Limitations: no limitations HEENT Head: Yes normocephalic and Yes atraumatic Mouth: moist mucous membranes Resp Effort & Inspection: normal respiratory effort and able to speak in complete sentences Auscultation: clear to auscultation bilaterally Cardio Rate: regular rate Rhythm: regular rhythm Skin General skin exam: no rashes or lesions noted Neuro General: patient oriented x3 Extrem Other: No active synovitis Normal bilateral hand care director rn strength Normal nailfold capillaroscopy Normal range of motion of hands, wrists, elbows and shoulders without pain Positive empty can test on the right Negative Speed's test on the right Negative infraspinatus test bilaterally Positive empty can test on the left No knee pain with full flexion and extension bilaterally No knee crepitus today bilaterally Assessment & Plan Assessment & Plan (1) DONTAE positive: Code(s): R76.8 - Other specified abnormal immunological findings in serum Category: Medical Plan: This is a 43-year-old male who presents for evaluation of a positive DONTAE in the setting of polyarthralgia. He has positive DONTAE 1-40 in a dfs pattern. Labs showed negative DONTAE/RF with normal CRP. Upon evaluation I do not see any compelling evidence of an underlying autoimmune disease. There is some degenerative arthritis and potential fibromyalgia. I gave patient a printout of home exercises for neck arthritis and rotator cuff tendinopathy. However given the episodic nature. Advised patient to call the office whenever he feels like he is in a flare-up and I will order transfer serology and inflammatory markers to further assess his symptoms Re-evaluate in 6 months Plan I spent 17 minutes reviewing patient's chart, evaluating patient, counseling patient and documenting in the chart Coding Level of Care Code Est Pt Level 3 (10410) Diagnoses DONTAE positive R76.8
[2024-02-13 12:42] VITALS: BP 122/70; PULSE 98; O2SAT 99; BMI 29.6
== END 2024-02-13 13:01 | disposition home or self-care (01) ==
PROVIDERS: PCP Internal Medicine; Visit Provider Student in an Organized Health Care Education/Training Program
DX: R76.8 Other specified abnormal immunological findings in serum (principal)
CPT/HCPCS: 99213

== ENCOUNTER → 2024-02-13 12:21 | Outpatient (BNVA) | payer OTHER, SELFPAY | PROVIDERS: PCP Internal Medicine; Visit Provider Student in an Organized Health Care Education/Training Program ==

== ENCOUNTER 2024-08-24 13:31 | Outpatient (AMB) | payer OTHER, SELFPAY ==
--- NOTE | 2024-08-24 13:37 | A.OFFVIS_ITS ---
Vital Signs 08/24/24 13:40 Height 6 ft Weight 232 lb 12.93 oz BMI 31.6 BP 120/84 Blood Pressure Location Rt brachial Position Sitting Pulse 102 H Pulse Source Pulse Oximeter Pulse Oximetry (%) 98 Oxygen Delivery Method Room Air Intake Visit Reasons: OA/RA Intake Note: Patient presents for OA/RA. Allergies sertraline Adverse Reaction (Unknown, Verified 08/24/24 13:40) felt numb SERTRALINE Adverse Reaction (Unknown, Uncoded 01/02/24 08:36) FELT NUMB Wellbutrin Adverse Reaction (Unknown, Uncoded 01/02/24 08:36) sexual side effects, felt like a robot Medication List - Last Reconciled 08/24/24 by Torrie Rush MD betamethasone dipropionate 0.05% 1 appl topical BID venlafaxine ER (Effexor XR) 75 mg PO DAILY HPI Comments Details: Patient returns for evaluation and he states that he was started on venlafaxine and it helps a lot of his pains but his main problem today is bilateral shoulder pain, worse on the right. 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 Initial history: This is a 43-year-old male who presents for evaluation of positive DONTAE in the setting of polyarthralgias. The condition started about 15 years ago with bilateral hand and wrist pain, the pain is usually worse with minor activity such as holding his phone but he has no issues with doing more strenuous activity such as moving boxes. He has tried numerous therapies over the years such as oxie-[id number]. Killers like Tylenol Advil, Aleve, he also tried CBD oil, vibrating crystals, glucosamine, fish oil, hot and cold compresses. None of that helped. He tried wrist splints they did not help. He also received injections on the palmar aspect of his wrists which did not help, 1 injection cause numbness so he stopped getting injections. Stated that what sometimes helps is hand and wrist compresses at night. What got him concerned is bilateral shoulder stiffness and cracking with certain movements that started about 8 months ago also intermittent right knee cracking and pain. Denies any joint swelling. Denies any morning stiffness. States that he gets a rash in areas where he sweats 2 to 3 times a year that rapidly goes away with ketocon azole. He is unaware of any family history of an autoimmune rheumatic disease. Denies any history of DVT/PE. Denies any fevers or weight loss. 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 Housing: House Patient Tobacco Use Status: Former Tobacco user (vape ) e-Cigarette/Vaping Use: Currently Using service: No Current occupational status: employed Cognitive needs: No Hearing needs: No Vision needs: Yes Review of Systems [facility] Reports arthralgias and Reports stiffness Physical Exam Vital Signs: Last Vital Signs Pulse 102 H 08/24/24 13:40 BP 120/84 08/24/24 13:40 Pulse Ox 98 08/24/24 13:40 Oxygen Delivery Method Room Air 08/24/24 13:40 BMI result Body Mass Index 31.6 Const General: cooperative, healthy appearing and comfortable Nutritional Appearance: overweight Orientation/consciousness: patient oriented x3 Limitations: no limitations HEENT Head: Yes normocephalic and Yes atraumatic Mouth: moist mucous membranes Resp Effort & Inspection: normal respiratory effort and able to speak in complete sentences Auscultation: clear to auscultation bilaterally Neuro General: patient oriented x3 Extrem Other: Positive empty can test bilaterally, much more prominent on the right Positive lift-off test on the right Office Procedures AMB Joint Injection/Aspiration Joint Injection/Aspiration Primary Site: right shoulder Prep: site was prepped using sterile technique and ethochloride spray was applied Injected: 40 mg of, Kenalog, with 1 mL of, 1% plain lidocaine and in the subcromial space Approach Used: posterolateral Procedure: The patient tolerated the procedure well Coding Details: With patient's consent, The right shoulder was prepped ChloraPrep and alcohol. The subacromial space was injected with 40 mg of triamcinolone and 1 cc of lidocaine. Patient tolerated the procedure well no apparent immediate side effects. 81624 - Large joint Procedure code (CPT) selection complete Office Meds lidocaine (PF) 10 mg/mL (1 %) injection solution Performing Provider: Torrie Rush MD [place] [facility] [place] Administered by: Torrie Rush MD on 08/24/24 14:18 Dose Route Admin Location Dispensed Lot Number Expiration Date [facility] Security Alarm [employer] 10 mg Infiltration Right shoulder 2 mL [id number] 11/17/26 72265-082-28 [facility] Kenalog 40 mg/mL suspension for injection Performing Provider: Torrie Rush MD [place] [facility] [place] Administered by: Torrie uRsh MD on 08/24/24 14:18 Dose Route Admin Location Dispensed Lot Number Expiration Date [facility] Security Alarm Technician 40 mg intra-articular Right shoulder 1 mL [id number] 02/16/26 [address]-4 [employer] Assessment & Plan Assessment & Plan (1) Subacromial bursitis of right shoulder joint: Code(s): M75.51 - Bursitis of right shoulder Category: Medical Plan: Discussed the nature of later cuff tendonitis and subacromial bursitis. Discussed with patient that the best management at this time is to take some time off of work and do PT however patient states that he can not any time off of work at this time he just got this new job and has no time off. We discussed steroid injection. With patient's consent, right subacromial bursa was injected with Kenalog. Follow-up as needed Plan I spent 15 minutes reviewing patient's chart, evaluating patient, counseling patient and documenting in the chart Orders: Orders AMB Joint Injection/Aspiration Today M75.51 - Bursitis of right shoulder Medications: New lidocaine (PF) 10 mg Infiltration ONCE 2 mL 0RF M75.51 - Bursitis of right shoulder Kenalog (triamcinolone acetonide) 40 mg intra-articular ONCE 1 mL 0RF NS M75.51 - Bursitis of right shoulder Coding Level of Care Code Est Pt Level 3 (36563) Diagnoses Subacromial bursitis of right shoulder joint M75.51 CPT Codes Coding - 15218 Large joint: 25249 - Large joint ([id number])
[2024-08-24 13:40] VITALS: BP 120/84; PULSE 102; O2SAT 98; BMI 31.6
== END 2024-08-24 14:10 | disposition home or self-care (01) ==
PROVIDERS: PCP Internal Medicine; Visit Provider Student in an Organized Health Care Education/Training Program
DX: M75.51 Bursitis of right shoulder (principal)
CPT/HCPCS: 20610; 99213

== ENCOUNTER → 2024-08-24 13:31 | Outpatient (BNVA) | payer OTHER, SELFPAY | PROVIDERS: PCP Internal Medicine; Visit Provider Student in an Organized Health Care Education/Training Program | DX: M75.51 Bursitis of right shoulder (principal) | CPT/HCPCS: 20610; J2003; J3300 ==

== ENCOUNTER 2024-10-06 07:47 | Outpatient (AMB) | payer OTHER, SELFPAY ==
--- OUTSIDE RECORDS SUMMARY | 2024-10-06 07:49 | XMS_ITS | Clinical Summary ---
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 Name Role Phone Unavailable Primary Care Provider Unavailabl e Immunizations Name Administration Dates Next Due Moderna Covid-19 Vaccine 6+ Bivalent 08/16/2022 Social History Tobacco Use Types Packs/Day Years Used Date Smoking Tobacco: Never Assessed Sex and Gender Information Value Date Recorded Sex Assigned at Not on file Legal Sex Male 4:34 PM EST Gender Identity Not on file Sexual Orientation Not on file Plan of Treatment Health Maintenance Due Date Last Done Comments Depression Screening 1981 HIV Screening 1981 Lipid Panel 1981 SDOH Screening 1981 Alcohol/Substance Use Screening 1993 Tobacco Screening 1993 Family Planning (PISQ) 1996 Hepatitis C Screening 11/22/1999 DTaP/Tdap/Td Vaccines (1 - Tdap) 2000 Hepatitis B Vaccines (1 of 3 - 19+ 3-dose series) 2000 COVID-19 Vaccine (2 - 2023-2 5 season) 2024 08/16/2022 Influenza Vaccine (#1) 2024 Zoster Vaccines (1 of 2) 11/22/2031 RSV Patients and Pa tients Aged 60 years or older (1 - 1-dose 75+ series) 2056 HIB Vaccines Aged Out No longer eligi ble based on patient's age to complete this topic HPV Vaccines Aged Out No longer eligi ble based on patient's age to complete this topic Hepatitis A Vaccines Aged Out No long er eligible based on patient's age to complete this topic IPV Vaccines Aged Out No longer eligi ble based on patient's age to complete this topic Meningococcal Vaccine Aged Out No chandler yuki eligible based on patient's age to complete this topic Pneumococcal Vaccine: Pediat rics (0 to 5 Years) and At-Risk Patients (6 to 49) Years) Aged Out No longer elig ible based on patient's age to complete this topic RSV under 20 months Aged Out No longe r eligible based on patient's age to complete this topic Rotavirus Vaccines Aged Out No longer eligible based on patient's age to complete this topic Insurance [employer] PPO
--- NOTE | 2024-10-06 07:52 | A.OFFVIS_ITS ---
Vital Signs 10/06/24 07:56 Height 6 ft Weight 223 lb 8.78 oz BMI 30.3 BP 122/90 H Blood Pressure Location Lt brachial Position Sitting Pulse 90 Pulse Source Pulse Oximeter Pulse Oximetry (%) 98 Oxygen Delivery Method Room Air Intake Visit Reasons: lt shoulder pain/inj Intake Note: Patient presents for shoulder pain/injection. Allergies sertraline Adverse Reaction (Unknown, Verified 10/06/24 07:56) felt numb SERTRALINE Adverse Reaction (Unknown, Uncoded 01/02/24 08:36) FELT NUMB Wellbutrin Adverse Reaction (Unknown, Uncoded 01/02/24 08:36) sexual side effects, felt like a robot HPI Comments Details: Patient is a 43-year-old male with hyperlipidemia and anxiety who presents today for follow up. Interval History: Patient last seen 08/24/[address] Rush. At that time he was complaining of bilateral shoulder pain worse on the right. He received right shoulder corticosteroid injection Rheumatologic History: Degenerative arthritis/? Fibromyalgia Initial history: This is a 43-year-old male who presents for evaluation of positive DONTAE in the setting of polyarthralgias. The condition started about 15 years ago with bilateral hand and wrist pain, the pain is usually worse with minor activity suc h as holding his phone but he has no issues with doing more strenuous activity such as moving boxes. He has tried numerous therapies over the years such as ablm-hqo-ablpesp pain killers like Tylenol Advil, Aleve, he also tried CBD oil, vibrating crystals, glucosamine, fish oil, hot and cold compresses. None of that helped. He tried wrist splints they did not help. He also received injections on the palmar aspect of his wrists which did not help, 1 injection cause numbness so he stopped getting injections. Stated that what sometimes helps is hand and wrist compresses at night. What got him concerned is bilateral shoulder stiffness and cracking with certain movements that started about 8 months ago also intermittent right knee cracking and pain. Denies any joint swelling. Denies any morning stiffness. States that he gets a rash in areas where he sweats 2 to 3 times a year that rapidly goes away with ketoconazole. He is unaware of any family history of an autoimmune rheumatic di sease. Denies any history of DVT/PE. Denies any fevers or weight loss. 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: House Alcohol intake: former Patient Tobacco Use Status: Former Tobacco user (vape ) e-Cigarette/Vaping Use: Currently Using service: No Current occupational status: employed Cognitive needs: No Hearing needs: No Vision needs: Yes Review of Systems Const Details: Review of Systems Constitutional: Denies fever, chills, weight loss ENT: Denies vision changes, eye pain or eye redness, dental caries, dry mouth GI: Denies nausea, vomiting, diarrhea, abdominal pain, change in BM Pulm: Denies SOB, RG, hemoptysis, wheezing Cards: Denies chest pain, palpitations Skin: Denies Raynaud's, rash, nail changes, photosensitivity, SPLIT LEATHER MOSSER: Denies headaches, weakness, paresthesias, recurrent falls MSK: as per HPI All other systems reviewed and are unremarkable except noted above Physical Exam Vital Signs: Last Vital Signs Pulse 90 10/06/24 07:56 BP 122/90 H 10/06/24 07:56 Pulse Ox 98 10/06/24 07:56 Oxygen Delivery Method Room Air 10/06/24 07:56 BMI result Body Mass Index 30.3 Vital signs reviewed Physical Examination CONSTITUITIONAL Patient alert and cooperative. Well appearing and in no apparent painful distress HEENT Conjunctiva and sclera clear. ?Pupils equal round and reactive to light. ?No lymphadenopathy. ? CHEST/RESPIRATORY SYSTEM Normal respiratory effort and able to speak in complete sentences. ?Clear to auscultation bilaterally. ?No crackles, rales, rhonchi, wheezes heard. CARDIAC SYSTEM Regular rate and rhythm. ?S1 and S2 heard no murmurs. ?Radial pulses intact bilaterally MSK Hands: ?Good field liability generalist strength bilaterally. No deformities noted. ?No synovitis noted to the MCPs, PIPs or DIPs. ?No tenderness to palpation of these joints. Wrists: ?Full range of motion at the wrists without pain. ?No tenderness to palpation or synovitis noted to the wrists. Elbows: Full range of motion without pain. No tenderness, weakness, swelling, increased warmth or erythema. Shoulders: Full range of motion without pain. No tenderness, weakness, swelling, increased warmth or erythema. Hips: Full range of motion without pain. Hip bursa: No tenderness to palpation Knees: ?Full range of motion. ?No tenderness, swelling, increased warmth or erythema.?No effusion or crepitations Ankles: Full range of motion. ?No tenderness, swelling, increased warmth or erythema.? Feet: ?Negative squeeze test. ?No tenderness to palpation or swelling of the MTPs. Tender points:?No tenderness to palpation of the bilateral trapezius, supraspinatus, greater trochanters, anterior costochondral junctions, bilateral gluteal areas, bilateral suboccipital muscle insertions SKIN Skin intact without rashes. Office Procedures AMB Joint Injection/Aspiration Joint Injection/Aspiration Details: Procedure was explained to the patient and consent was obtained. ? The area of interest was identified and confirmed with patient. ?This was subsequently cleaned with chlorhexidine x3. ? The area was then anesthetized using ethyl chloride spray. 40 mg Kenalog with 1 cc 1% lidocaine was injected without issue. ?Minimal to no bleeding. ?Patient tolerated procedure. Primary Site: left shoulder Prep: site was prepped using aseptic technique and ethochloride spray was applied Injected: 40 mg of, Kenalog, with 1 mL of and 1% plain lidocaine Approach Used: other Procedure: The patient tolerated the procedure well Coding 31381 - Large joint Procedure code (CPT) selection complete Office Meds lidocaine (PF) 10 mg/mL (1 %) injection solution Performing Provider: Nikki Rachel MD [place] [facility] [place] Administered by: Nikki Racehl MD on 10/06/24 08:27 2 Dose Route Admin Location Dispensed Lot Number Expiration Date [facility] Tacking Machine Operator 1 mL Infiltration left subacromial bursa 2 mL [id number] [email or web address] Kenalog 40 mg/mL suspension for injection Performing Provider: Nikki Rachel MD Performing Location[place] [facility] [place] [facility] Administered by: Nikki Rachel MD on 10/06/24 08:27 Dose Route Admin Location Dispensed Lot Number Expiration Date [facility] Tacking Machine Operator 40 mg intrabursal left subacromial bursa 1 mL [id number] 02/16/26 [address]-8 [facility] Results Reviewed Results Reviewed: Laboratory Tests 11/09/23 11/09/23 09:15 09:18 WBC 7.3 RBC 5.09 Hgb 15.4 Hct 44.0 Plt Count 201 Sodium 142 Potassium 4.3 Chloride 106 Carbon Dioxide 26 BUN 12 Creatinine 0.98 C-Reactive Protein < 0.10 Rheumatoid Factor < 13.0 Cycl Citrul Peptide IgG <16 DONTAE Screen POSITIVE A DONTAE Titer 1:40 H XR C spine, Bilateral shoulders, Bilateral knees 01/2024 FINDINGS: Cervical Spine: Mild degenerative changes with loss of disc space height at C5-C6. Limited visualization of C7 due to overlying bony and soft tissue structures. Alignment preserved. Left Shoulder: Mild osteoarthritic changes in the acromioclavicular joint. Glenohumeral alignment preserved. No abnormal soft tissue calcifications appreciated adjacent to the humeral head. Mild hypertrophic change along the inferior aspect of the glenoid. Right Shoulder: Mild osteoarthritic changes in the acromioclavicular joint. Glenohumeral alignment preserved. Amorphous soft tissue calcification adjacent to the right greater tuberosity suggests rotator cuff pathology. Right Knee: Moderate right joint effusion. Mild narrowing of the medial compartment with tiny medial marginal and posterior patellar osteophytes. Left Knee: Moderate joint effusion. Mild narrowing of the medial compartment with tiny medial marginal and posterior patellar osteophytes. X Bilateral Hands 10/2023 FINDINGS: The bones and soft tissues are normal. No acute fracture or dislocation is seen. There is old, healed fracture of the shaft of the right fifth metacarpal bone, with mild residual angulation and bony remodeling. Alignment is anatomic. There is a neutral ulnar variance. Joint spaces are maintained. No erosions or soft tissue calcifications. Assessment & Plan Assessment & Plan (1) Subacromial bursitis of left shoulder joint: Code(s): M75.52 - Bursitis of left shoulder Category: Medical Plan: #Subacromial bursitis Patient with bilateral early AC joint osteoarthritis as confirmed on x-ray. This is complicated by bilateral subacromial bursitis. Received injection on the right about 1 month ago and had improvement in his pain and now is having issues with his left. Left subacromial bursa injected with steroids today. Plan - S/p steroid injection - Follow up 4-6 months (2) Polyarticular osteoarthritis: Code(s): M15.9 - Polyosteoarthritis, unspecified Category: Medical Plan: #Polyarticular OA Patient with polyarticular osteoarthritis. This was likely precipitated by his job. Currently doing conservative management (3) DONTAE positive: Code(s): R76.8 - Other specified abnormal immunological findings in serum Category: Medical Plan: #Positive DONTAE The presence of antinuclear antibodies (DONTAE) is mainly associated with connective tissue diseases (CTD). ?However, their presence is found in healthy people especially in women and patients >65. ?In healthy individuals, the frequency of DONTAE has been shown to be 31.7% of individuals at 1:40 serum dilution, 13.3% at 1:80, 5.0% at 1:160, and 3.3% at 1:320 (2). Some drugs and xenobiotics are also important for the development of DONTAE (hydralazine, hydrochlorothiazide, minocycline, terbinafine, ciprofloxacin, furosemide, omeprazole). Moreover, the deficiency of vitamin D in the body of patients correlates with occurrence of these antibodies (1). At this time there is low suspicion for a connective tissue disease. ? 1. Anna?amandeep Zacarias, Jeannine Dyer, Андрей Desouza. Antinuclear antibodies in healthy people and non-rheumatic diseases - diagnostic and clinical implications. Reumatologia. 2018;56(4):243-248. doi: 10.5114/reum.2018.48099. Epub 2017Apr 18. PMID: 89617150; PMCID: [id number]. 2. Irwin EM, Charla TE, Emily JS, Laura B, Junaid R, Doris MJ, Trung T, Isatu JA, Derian ROSE, Candi VARGAS, Zahira RN, Rojas ALARCON, Anya NF, John RJ, Takviki Y, Erik A, Ray MR, Brendon AYON. Range of antinuclear antibodies in healthy individuals. Arthritis Rheum. 1996;40(9):1601-11. doi: 10.1002/art.[id number]. PMID: 8067156. Plan I spent 20 minutes reviewing the record and labs, taking a history, examining the patient, discussing the treatment plan and documenting in the medical record Orders: Orders AMB Joint Injection/Aspiration Today M75.52 - Bursitis of left shoulder Medications: New lidocaine (PF) 1 mL Infiltration ONCE 2 mL 0RF M75.52 - Bursitis of left shoulder Kenalog (triamcinolone acetonide) 40 mg intrabursal ONCE 1 mL 0RF NS M75.52 - Bursitis of left shoulder Coding Level of Care Code Est Pt Level 3 (33641) Diagnoses Subacromial bursitis of left shoulder joint M75.52 Polyarticular osteoarthritis M15.9 DONTAE positive R76.8 CPT Codes Coding - 25036 Large joint: 80379 - Large joint ([id number])
[2024-10-06 07:56] VITALS: BP 122/90; PULSE 90; O2SAT 98; BMI 30.3
== END 2024-10-06 08:23 | disposition home or self-care (01) ==
PROVIDERS: PCP Internal Medicine; Visit Provider Student in an Organized Health Care Education/Training Program
DX: M75.52 Bursitis of left shoulder (principal); M15.9 Polyosteoarthritis, unspecified; R76.8 Other specified abnormal immunological findings in serum
CPT/HCPCS: 20610; 99213

== ENCOUNTER → 2024-10-06 07:47 | Outpatient (BNVA) | payer OTHER, SELFPAY | PROVIDERS: PCP Internal Medicine; Visit Provider Student in an Organized Health Care Education/Training Program | DX: M75.52 Bursitis of left shoulder (principal); M15.9 Polyosteoarthritis, unspecified; R76.8 Other specified abnormal immunological findings in serum; Z79.899 Other long term (current) drug therapy | CPT/HCPCS: 20610; J3300 ==

== ENCOUNTER 2024-10-30 09:35 | Outpatient (AMB) | payer OTHER, SELFPAY ==
[2024-10-30 09:48] VITALS: BP 120/74; PULSE 62; RESP 18; TEMP 36.8; O2SAT 98; BMI 28.7
--- NOTE | 2024-10-30 09:48 | MHC.PC.OV ---
Vital Signs 10/30/24 09:48 Height 6 ft Weight 212 lb BMI 28.7 BP 120/74 Blood Pressure Location Lt brachial Position Sitting Respiration 18 Pulse 62 Pulse Source Pulse Oximeter Temp 98.3 F Temp Source Oral Pulse Oximetry (%) 98 Oxygen Delivery Method Room Air Intake Visit Reasons: PE Intake Note: Pt is here today for PE. Allergies sertraline Adverse Reaction (Unknown, Verified 10/30/24 09:50) felt numb SERTRALINE Adverse Reaction (Unknown, Uncoded 10/30/24 09:50) FELT NUMB Wellbutrin Adverse Reaction (Unknown, Uncoded 10/30/24 09:50) sexual side effects, felt like a robot Medication List - Last Reconciled 10/30/24 by Laura Courtney MD venlafaxine ER (Effexor XR) 75 mg PO DAILY Tobacco use date assessed: 10/30/24 Dental Screening Dental Screen Date: 10/30/24 Did you have a dental visit in the last 12 months?: Yes Did you have a dental problem in the last 6 months where you did not have access to dental care?: No Was dental information given to patient?: Patient has dentist HPI PE HPI Details Patient presents for physical. 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 Patient was seen by ortho x-ray of both shoulders were consistent with mild osteoarthritis and calcification over right rotator cuff indicating chronic tendinopathy. Patient was given cortisone injections in both shoulders with relief but has never tried physical therapy. 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 1. Little interest or pleasure in doing things: not at all 2. Feeling down, depressed, or hopeless: not at all 3. Trouble falling or staying asleep, or sleeping too much: not at all 4. Feeling tired or having little energy: not at all 5. Poor appetite or overeating: not at all 6. Feeling bad about yourself - or that you are a failure or have let yourself or your family down: not at all 7. Trouble concentrating on things, such as reading the newspaper or watching television: not at all 8. Moving or speaking so slowly that other people could have noticed. Or the opposite - being so fidgety or restless that you have been moving around a lot more than usual: not at all 9. Thoughts that you would be better off or of hurting yourself in some way: not at all Total score: 0 Depression Screening Interpretation: Negative Depression Screening Done: Yes 62412 - PHQ-9 Billing: Yes Source: Developed by Drs. Allan Roque, Mariama Trejo, Ernesto Fenton and colleagues, with an educational mili from [employer]. Thrive Questionnaire Date Thrive assessed: 10/30/24 I am a: Patient What is your living situation today?: I have a steady place to live Within the past 12 months, did the food you bought not last and you didn't have the money to get more?: Never true Within the past 12 months, did you worry whether your food would run out before you got money to buy more?: Never true Do you have trouble paying for medicines?: No Do you have trouble getting transportation to medical appointments?: No Do you have trouble paying your heating and electricity bill?: No Do you have trouble taking care of your child, family member or friend?: No Do you have trouble with day-to-day activities such as bathing, preparing meals, shopping, managing finances, etc.?: No Are you currently unemployed and looking for a job?: No Are you interested in more education?: No Please select the resources that you would like help with: None Currently or been in a relationship where the following occur: No concerns reported THRIVE Score: 0 AUDIT C Alcohol Use Questionnaire (AUDIT-C) 1. How often do you have a drink containing alcohol?: Never 3. How often do you have six or more drinks on one occasion?: Never Total Score: 0 KORY-7 AMB Questionnaire KORY-7 Date KORY - 7 assessed: 10/30/24 Feeling nervous, anxious, or on edge: 0 = Not at all Not being able to stop or control worryin = Not at all Worrying too much about different things: 0 = Not at all Trouble relaxin = Not at all Being so restless that it is hard to sit still: 0 = Not at all Becoming easily annoyed or irritable: 0 = Not at all Feeling afraid as if something awful might happen: 0 = Not at all Total KORY-7 score (0-4 normal; 5-9 mild; 10-14 moderate; 15-21 severe): 0 Source: Developed by Drs. Allan Roque, Mariama Trejo, Ernesto Fenton and colleagues, with an educational mili from [employer]. KORY-7 Assessment Billing KORY-7 Assessment Tool: KORY-7 Assessment 38972 Review of Systems Const All systems reviewed & are unremarkable except as noted in HPI and below Eyes Reports no additional complaints ENT Reports no additional complaints Card Reports no additional complaints Resp Reports no additional complaints GI Reports no additional complaints Reports no additional complaints Physical exam (Primary Care) Vital Signs: Last Vital Signs Temp 98.3 F 10/30/24 09:48 Pulse 62 10/30/24 09:48 Resp 18 10/30/24 09:48 BP 120/74 10/30/24 09:48 Pulse Ox 98 10/30/24 09:48 Oxygen Delivery Method Room Air 10/30/24 09:48 BMI result Body Mass Index 28.7 Tobacco/Smoking Status: Tobacco use Status Tobacco use date assessed 10/30/24 10/30/24 09:50 Patient Tobacco Use Status Former Tobacco user (vape ) 10/30/24 09:50 e-Cigarette/Vaping Use Currently Using 10/30/24 09:50 PHQ-9: PHQ-9 Score PHQ-9: Total score 0 10/30/24 11:54 Depression Screening Interpretation: Negative Thrive Assessment: Date of Thrive Assessment Date Thrive assessed 10/30/24 10/30/24 09:50 Currently or been in a relationship where the following occur: No concerns reported Const General: no acute distress HENMT Head: Yes normal to inspection Face and sinus: Yes normal facial exam Mouth: Normal oral and palatal mucosa present Eyes General: appearance normal, both eyes and all related structures Neck Neck: Yes no lymphadenopathy and Yes supple Resp Effort & Inspection: normal respiratory effort Auscultation: clear to auscultation bilaterally Cardio Rhythm: regular rhythm Heart sounds: S1 normal heart sound present and S2 normal heart sound present GI Inspection: Yes normal to inspection Palpation (GI): Soft to palpation Percussion: Yes normal to percussion Auscultation: normal bowel sounds Extrem Other: There is a slightly decreased range of motion both shoulders right more than left. There is no joint tenderness Coding Level of Care Code Est Pt Prev Care 40-64y(61936) Diagnoses Annual physical exam Z00.00 Osteoarthritis of shoulder due to rotator cuff injury M19.119; S46.009S Shoulder pain, right M25.511 Shoulder pain, left M25.512 Additional Codes KORY-7 Assessment Billing - KORY-7 Assessment Tool: KORY-7 Assessment 11276 ([id number]) PHQ-9 - 51735 - PHQ-9 Billing: Yes ([id number]) Assessment & Plan Assessment & Plan (1) Annual physical exam: Code(s): Z00.00 - Encounter for general adult medical examination without abnormal findings Category: Medical Plan: Well-balanced diet regular physical activity discussed with the patient , he will continue venlafaxine for chronic anxiety and depression. Patient will return for fasting blood work (2) Osteoarthritis of shoulder due to rotator cuff injury: Code(s): M19.119 - Post-traumatic osteoarthritis, unspecified shoulder; S46.009S - Unspecified injury of muscle(s) and tendon(s) of the rotator cuff of unspecified shoulder, sequela Category: Medical Plan: Obtain right shoulder MRI to evaluate for rotator cuff tear (3) Shoulder pain, right: Code(s): M25.511 - Pain in right shoulder Category: Medical Plan: Referred to physical therapy (4) Shoulder pain, left: Code(s): M25.512 - Pain in left shoulder Category: Medical Plan: Referred to physical therapy Orders: Orders Comprehensive Waterflow. Panel Fast Today Z00.00 - Encounter for general adult medical examination without abnormal findings Complete Blood Count Auto Diff Today Z00.00 - Encounter for general adult medical examination without abnormal findings LDL Cholesterol Direct Today Z00.00 - Encounter for general adult medical examination without abnormal findings MR shoulder RT wo con Today M19.119 - Post-traumatic osteoarthritis, unspecified shoulder, S46.009S - Unspecified injury of muscle(s) and tendon(s) of the rotator cuff of unspecified shoulder, sequela PT Evaluation and Treatment Today M25.511 - Pain in right shoulder, M25.512 - Pain in left shoulder Comprehensive Waterflow. Panel Fast 1 Year Z00.00 - Encounter for general adult medical examination without abnormal findings Complete Blood Count Auto Diff 1 Year Z00.00 - Encounter for general adult medical examination without abnormal findings UA w Microscopic 1 Year Z00.00 - Encounter for general adult medical examination without abnormal findings Lipid Panel Today Z00.00 - Encounter for general adult medical examination without abnormal findings UA w Microscopic Today Z00.00 - Encounter for general adult medical examination without abnormal findings Lipid Panel 1 Year Z00.00 - Encounter for general adult medical examination without abnormal findings
--- OUTSIDE RECORDS SUMMARY | 2024-10-30 10:32 | XMS_ITS | Clinical Summary ---
Author Organization [employer] Address [address] [place] [address] Care Team Providers Care Business Relations Manager Name Role Phone Unavailable Primary Care Provider [...]
== END 2024-10-30 11:32 | disposition home or self-care (01) ==
LOC: HO.HMCC 09:36
PROVIDERS: PCP Internal Medicine; Visit Provider Internal Medicine
DX: Z00.00 Encounter for general adult medical examination without abnormal findings (principal); M19.119 Post-traumatic osteoarthritis, unspecified shoulder; S46.009S Unspecified injury of muscle(s) and tendon(s) of the rotator cuff of unspecified shoulder, sequela; M25.511 Pain in right shoulder; M25.512 Pain in left shoulder

== ENCOUNTER → 2024-10-30 09:35 | Outpatient (BNVA) | payer OTHER, SELFPAY | PROVIDERS: PCP Internal Medicine; Visit Provider Internal Medicine | DX: Z00.00 Encounter for general adult medical examination without abnormal findings (principal); M19.111 Post-traumatic osteoarthritis, right shoulder; S46.001S Unspecified injury of muscle(s) and tendon(s) of the rotator cuff of right shoulder, sequela; M25.512 Pain in left shoulder | CPT/HCPCS: 96127 ==

== ENCOUNTER 2024-11-03 06:35 | Outpatient (REF) | payer OTHER, SELFPAY ==
[2024-11-03 10:18] LABS: Appearance Urine Clear; Color Urine Dark Yellow; Glucose Urine UA Negative (Negative); Leukocyte Esterase Urine Negative (Negative); Nitrite Urine Negative (Negative); Specific Gravity - Urine >= 1.030 (1.005-1.025); UMIC TRIGGER UA YES; Urine Blood Negative (Negative); Urine Ketones Trace mg/dL (Negative); Urine Protein 30 (1+) mg/dL (Neg-Trace)
[2024-11-03 10:19] LABS: MANUAL DIFF FLAG NO
[2024-11-03 10:22] LABS: Bacteria Urine None Seen (None Seen); Hyaline Casts Urine 0-2 /LPF (0-2); RBC Urine 0-2 /HPF (0-2); Squamous Epithelial Cell Urine 0-2 /HPF (0-2); WBC Urine 0-5 /HPF (0-5)
[2024-11-03 10:27] LABS: Basophils Absolute Auto 0.1 X10*3/uL (0.0-0.2); Basophils Percent Auto 0.9 % (0-2); Eosinophils Absolute Auto 0.2 X10*3/uL (0.0-0.4); Eosinophils Percent Auto 2.3 % (0-4); Hematocrit 43.9 % (42.0-52.0); Hemoglobin 15.1 g/dl (14.0-18.0); Imm Gran Abs Auto 0.03 X10*3/uL (0.00-0.03); Imm Gran Pct Auto 0.4 % (0.0-0.4); Lymphocytes Absolute Auto 1.6 X10*3/uL (1.2-4.9); Mean Corpuscular HGB Conc 34.4 g/dl (31.0-36.0); Mean Corpuscular Hemoglobin 30.2 pg (27.0-33.0); Mean Corpuscular Volume 87.8 fL (80.0-98.0); Mean Platelet Volume 11.8 fL (9.4-12.4); Monocytes Absolute Auto 0.8 X10*3/uL (0.1-1.2); Neutrophils Absolute Auto 4.8 x10*3/uL (2.0-8.3); Neutrophils Percent Auto 64.4 % (45-73); Platelet Count 198 X10*3/uL (160-400); Red Cell Distribution Width 12.7 % (11.0-16.0); White Blood Count 7.5 X10*3/uL (4.8-10.8)
[2024-11-03 10:53] LABS: Alanine Aminotransferase 33 U/L (0-40); Albumin Level 4.4 g/dL (3.5-5.0); Alkaline Phosphatase 49 U/L (39-117); Anion Gap 12 (12-20); Aspartate Amino Transferase 28 U/L (5-37); Bilirubin Total 0.6 mg/dL (0.0-1.0); Blood Urea Nitrogen 15 mg/dL (9-16); Calcium 9.2 mg/dL (8.4-10.2); Carbon Dioxide 27 mmol/L (22-29); Chloride 108 mmol/L (96-108); Cholesterol 192 mg/dL (<200); Estimated Glomerular Filt Rate > 60; Glucose Fasting 100 mg/dL (60-99); HDL Cholesterol 35 mg/dL (>40); LDL Cholesterol Calculated 125 mg/dL (<100); Potassium 4.4 mmol/L (3.3-5.1); Sodium 143 mmol/L (135-145); Total Protein 7.2 g/dL (6.5-8.0); Triglycerides 162 mg/dL (<150)
[2024-11-04 07:44] LABS: LDL Cholesterol Direct 129 mg/dL (<100)
== END 2024-11-03 06:36 | disposition home or self-care (01) ==
LOC: HO.HMGCLDS 06:35
PROVIDERS: PCP Internal Medicine; Visit Provider Internal Medicine
DX: Z00.00 Encounter for general adult medical examination without abnormal findings (principal)
CPT/HCPCS: 36415; 80053; 80061; 81001; 83721; 85025

== ENCOUNTER 2024-11-13 06:24 | Outpatient (REF) | payer OTHER, SELFPAY ==
[2024-11-13 10:23] LABS: Appearance Urine Clear; Color Urine Yellow; Glucose Urine UA Negative (Negative); Leukocyte Esterase Urine Negative (Negative); Nitrite Urine Negative (Negative); Specific Gravity - Urine 1.025 (1.005-1.025); Urine Blood Negative (Negative); Urine Ketones Negative (Negative); Urine Protein Trace mg/dL (Neg-Trace)
== END 2024-11-13 06:25 | disposition home or self-care (01) ==
LOC: HO.HMGCLDS 06:24
PROVIDERS: PCP Internal Medicine; Visit Provider Internal Medicine
DX: Z00.00 Encounter for general adult medical examination without abnormal findings (principal)
CPT/HCPCS: 81003

== ENCOUNTER 2024-12-04 07:00 | Outpatient (RCR) | payer OTHER, SELFPAY ==
--- NOTE | 2024-11-13 08:01 | MHC.PT.EP ---
[facility] [place] Office [place] Office [place] Office [address] Ayesha Garcia [address] [phone] F: [phone] F: [phone] F: [phone] F: [phone] Physical Therapy Plan of Care Date of Evaluation: 11/13/24 Date of Surgery: Diagnosis: This is a 43 yo male presenting to skilled PT with a script for B shoulder pain. Assessment: This is a 43 yo male presenting to skilled PT with a script for B shoulder pain. Patient reporting ongoing B shoulder pain (R is worse than the L) for a few years now with insidious onset. Pain is located B at the upper and lateral GHJ and slightly into the triceps (RHD) and has some sharpness on the R however the L is described more as sore. Pain increases with lifting the arm up and/or out, sleeping and with UB ADLs. He endorses some crepitus. He has had cortisone injections in B shoulders with some relief through rheumatology. His pain is constant. He has not seen an orthopedic yet. He is hoping for an MRI however it was denied by insurance. Assessment reveals pain that ranges from up to a 4/10 at the worst. Patient demos decreased B shoulder and thoracic ROM, strength of B shoulder's and scapular stabilizers, TTP at lateral upper arms and impaired posture with forward head, anterior GHJ's and rounded shoulders. Based on functional limitations, impaired QOL and pain tolerance patient is a good candidate for skilled PT 2x/wk for 4wks. Frequency and Duration: The patient will be seen 2x/wk for 4wks Short Term Goals: (In 2 weeks) Demo I with HEP Improve shoulder nonpainful AROM by at least 10 degs for flexion and abduction B Demo proper scapular recruitment with appropriate shoulder strengthening exercises Demo good understanding of importance of posture Assistant Case Manager Goals: (in 4 wks) Improve shoulder nonpainful AROM to almost near equal B and WFL Demo at least 1 grade improvement in MMT for shoulder abduction, ER and scapular stabalizers Improve overall functional QOL by at least 75% including sleeping, ADLs and work related tasks Treatment Plan: Modalities to reduce pain, spasms and effusion. Manual therapy to restore motion and function. Therapeutic exercise to improve strength and flexibility. Neuromuscular re-education for posture and balance. Therapeutic activities to return to functional activities of daily living. Electronically signed by: Latonia Singh PT Please sign and return to therapist. Thank you for your referral.
--- NOTE | 2024-12-04 07:07 | MHC.PT.DC ---
[facility] [place] Office [place] Office [place] Office [address] Ayesha Garcia [address] [phone] F: [phone] F: [phone] F: [phone] F: [phone] Physical Therapy Discharge Report Diagnosis: This is a 43 yo male presenting to skilled PT with a script for B shoulder pain. Date of Surgery: Date of Evaluation: 11/13/24 Date of Discharge: 12/04/24 Treatments to Date: 7 Cancellations to Date: 0 No Shows to Date: 0 Discharge Status: Patient Elected to Stop Recommend MD Follow-up Discharge Summary: 12/04: Patient arrived again but stated that he does not want to do PT anymore. He feels like his is making him worse and now his R arm is more painful. At this point I DC'd him from our care due to lack of progress towards his goals, pain management and functional improvements. DC to MD for new steps with POC. Electronically signed by: Latonia Singh PT Please sign and return to therapist. Thank you for your referral.
== END 2024-12-04 07:08 | disposition home or self-care (01) ==
LOC: HO.PTCHIC 07:00
PROVIDERS: PCP Internal Medicine; Visit Provider Internal Medicine
DX: M25.511 Pain in right shoulder (principal); M25.512 Pain in left shoulder
CPT/HCPCS: 97110; 97162

== ENCOUNTER → 2024-12-17 19:13 | Outpatient (BNV) | payer OTHER, SELFPAY | PROVIDERS: PCP Internal Medicine; Visit Provider Radiology Diagnostic Radiology | DX: M25.511 Pain in right shoulder (principal) | CPT/HCPCS: 73221 ==

== ENCOUNTER 2024-12-17 19:14 | Outpatient (REF) | payer OTHER, SELFPAY ==
--- NOTE | ~2024-12-17 | MR_ITS ---
EXAMINATION: MR SHOULDER, RIGHT CLINICAL INFORMATION: Right shoulder pain, chronic, worsening over last year. No specific injury. COMPARISON: No prior MRI. Right shoulder radiographs 01/29/2024. TECHNIQUE: Multiplanar multisequence MR imaging of the right shoulder was done without IV contrast. Examination performed on a 1.5 Nancy Siemens unit utilizing standard sequences. FINDINGS: Rotator Cuff and Biceps Tendon: Supraspinatus: Intact without evidence of tear. There is mild increased signal consistent with mild tendinopathy. The muscle belly is normal. Infraspinatus: There is oval soft tissue calcification measuring 11 x 6 x 5 mm within the anterior superior tendon abutting the footplate attachment, consistent with calcific tendinopathy. (Series 8, image 17; series 9, image 23). There is no associated discrete tear although there is increased signal within the tendon consistent with mild to moderate tendinopathy. Subscapularis: Intact without definite tear. Mild changes of tendinopathy. Muscle belly is normal. Teres Minor: Intact and normal in signal. The muscle belly is normal. Biceps Long Head: Normally located within the bicipital groove. Normal morphology. The tendon in the rotator interval is normal in signal and morphology. [place] is intact. AC Joint and Acromiohumeral Arch: There is mild to moderate predominantly superior surface spurring of the AC joint with capsular distention and mild periarticular edema. There is no significant undersurface spurring. There is no supraspinatus outlet impingement. There is a type II acromion. Subacromial space is preserved. No undersurface spurring. Glenohumeral Joint and Labrum: There is normal fluid within the glenohumeral joint. There is a normal-appearing cartilage without significant cartilage defect or significant degenerative arthritis. There is no subchondral bone plate edema identified. There is irregular signal within the superior labrum extending into the superior anterior labral region suggestive of labral tearing. Otherwise the remainder of the labrum appears intact without discrete tear. Osseous Structures: No additional abnormal signal or edema to suggest contusion, fracture, or bone lesion. Spino-glenoid Notch: Normal. Quadrilateral Space: Normal. Other: Glenohumeral ligaments are intact, without significant thickening. There is signal and small volume fluid within the subacromial/subdeltoid bursa, findings consistent with mild to moderate bursitis. MR/MR shoulder RT wo con IMPRESSION: 1. 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 2. There is no discrete supraspinatous, infraspinatus, or subscapularis tear. There is mild tendinopathy all 3 tendons present. 3. There is mild to moderate subacromial/subdeltoid bursitis. 4. Suspect superior labral tearing. 5. No pathology of the long head of the biceps tendon. 6. There is moderate arthritis of the AC joint with predominantly superior surface spurring present. Electronically signed by: Emerson Bowman MD 12/18/2024 01:15 PM EDT
== END 2024-12-17 19:15 | disposition home or self-care (01) ==
LOC: HO.MRI 19:14
PROVIDERS: PCP Internal Medicine; Visit Provider Internal Medicine
DX: M19.119 Post-traumatic osteoarthritis, unspecified shoulder (principal); S46.009S Unspecified injury of muscle(s) and tendon(s) of the rotator cuff of unspecified shoulder, sequela
CPT/HCPCS: 73221

== ENCOUNTER 2025-02-03 08:19 | Outpatient (AMB) | payer OTHER, SELFPAY ==
--- NOTE | 2025-02-03 08:22 | MHC.OFFVIS ---
Vital Signs 02/03/25 08:28 Height 6 ft Weight 210 lb 5.136 oz BMI 28.5 BP 124/80 Blood Pressure Location Lt brachial Position Sitting Pulse 70 Pulse Source Pulse Oximeter Pulse Oximetry (%) 99 Oxygen Delivery Method Room Air Intake Visit Reasons: lt shoulder pain/inj Intake Note: Patient presents for shoulder pain follow up. Allergies sertraline Adverse Reaction (Unknown, Verified 02/03/25 08:27) felt numb SERTRALINE Adverse Reaction (Unknown, Uncoded 10/30/24 09:50) FELT NUMB Wellbutrin Adverse Reaction (Unknown, Uncoded 10/30/24 09:50) sexual side effects, felt like a robot Medication List - Last Reconciled 02/03/25 by Nikki Rachel MD ketoconazole 400 mg (2 x 200 mg) PO DAILY venlafaxine ER (Effexor XR) 75 mg PO DAILY HPI Comments Details: Patient is a 43-year-old male with hyperlipidemia and anxiety who presents today for follow up. Interval History: Patient last seen 09/2024. At that time he was complaining of bilateral shoulder pain worse on the right. He received left shoulder corticosteroid injection Requesting bilateral shoulder injections today Rheumatologic History: Degenerative arthritis/? Fibromyalgia Initial history: This is a 43-year-old male who presents for evaluation of positive DONTAE in the setting of polyarthralgias. The condition started about 15 years ago with bilateral hand and wrist pain, the pain is usually worse with minor activity such as holding his phone but he has no issues with doing more strenuous activity such as moving boxes. He has tried numerous therapies over the years such as [id number] pain killers like Tylenol Advil, Aleve, he also tried CBD oil, vibrating crystals, glucosamine, fish oil, hot and cold compresses. None of that helped. He tried wrist splints they did not help. He also received injections on the palmar aspect of his wrists which did not help, 1 injection cause numbness so he stopped getting injections. Stated that what sometimes helps is hand and wrist compresses at night. What got him concerned is bilateral shoulder stiffness and cracking with certain movements that started about 8 months ago also intermittent right knee cracking and pain. Denies any joint swelling. Denies any morning stiffness. States that he gets a rash in areas where he sweats 2 to 3 times a year that rapidly goes away with ketoconazole. He is unaware of any family history of an autoimmune rheumatic disease. Denies any history of DVT/PE. Denies any fevers or weight loss. 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: House Alcohol intake: former Patient Tobacco Use Status: Former Tobacco user (vape ) e-Cigarette/Vaping Use: Currently Using service: No Current occupational status: employed Cognitive needs: No Hearing needs: No Vision needs: Yes Review of Systems Const Details: Review of Systems Constitutional: Denies fever, chills, weight loss ENT: Denies vision changes, eye pain or eye redness, dental caries, dry mouth GI: Denies nausea, vomiting, diarrhea, abdominal pain, change in BM Pulm: Denies SOB, RG, hemoptysis, wheezing Cards: Denies chest pain, palpitations Skin: Denies Raynaud's, rash, nail changes, photosensitivity, CT TECHNOLOGIST: Denies headaches, weakness, paresthesias, recurrent falls MSK: as per HPI All other systems reviewed and are unremarkable except noted above Physical Exam Vital Signs: Last Vital Signs Pulse 70 02/03/25 08:28 BP 124/80 02/03/25 08:28 Pulse Ox 99 02/03/25 08:28 Oxygen Delivery Method Room Air 02/03/25 08:28 BMI result Body Mass Index 28.5 Vital signs reviewed Physical Examination CONSTITUITIONAL Patient alert and cooperative. Well appearing and in no apparent painful distress HEENT Conjunctiva and sclera clear. ?Pupils equal round and reactive to light. ?No lymphadenopathy. ? CHEST/RESPIRATORY SYSTEM Normal respiratory effort and able to speak in complete sentences. ?Clear to auscultation bilaterally. ?No crackles, rales, rhonchi, wheezes heard. CARDIAC SYSTEM Regular rate and rhythm. ?S1 and S2 heard no murmurs. 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 No deformities noted. ?No synovitis noted to the MCPs, PIPs or DIPs. ?No tenderness to palpation of these joints. Wrists: ?Full range of motion at the wrists without pain. ?No tenderness to palpation or synovitis noted to the wrists. Elbows: Full range of motion without pain. No tenderness, weakness, swelling, increased warmth or erythema. Shoulders: Full range of motion without pain. No weakness, swelling, increased warmth or erythema. TTP of the bilateral subacromial bursa Knees: ?Full range of motion. ?No tenderness, swelling, increased warmth or erythema.?No effusion or crepitations Ankles: Full range of motion. ?No tenderness, swelling, increased warmth or erythema.? Feet: ?Negative squeeze test. ?No tenderness to palpation or swelling of the MTPs. Tender points:?No tenderness to palpation of the bilateral trapezius, supraspinatus, greater trochanters, anterior costochondral junctions, bilateral gluteal areas, bilateral suboccipital muscle insertions SKIN Skin intact without rashes. Office Procedures AMB Joint Injection/Aspiration Joint Injection/Aspiration Details: Procedure was explained to the patient and informed consent was obtained. ? Risks associated with the procedure were discussed with the patient including but not limited to bleeding, infection, drug reactions and reactions to the topical anesthetic. Patient made aware of signs to look out for infectious complications. The area of interest was identified and confirmed with patient. ?This was subsequently cleaned with chlorhexidine x3. ? The area was then anesthetized using ethyl chloride spray. 40 mg Kenalog with 1 cc 1% lidocaine was injected without issue. ?Minimal to no bleeding. ?Patient tolerated procedure. Primary Site: right shoulder Prep: site was prepped using aseptic technique and ethochloride spray was applied Injected: 40 mg of, Kenalog, with 1 mL of, 1% plain lidocaine and in the subcromial space Procedure: The patient tolerated the procedure well Coding 99662 - Glenohumeral/Tronchanteric Bursa/Intraarticular Procedure code (CPT) selection complete AMB Joint Injection/Aspiration Joint Injection/Aspiration Details: Procedure was explained to the patient and informed consent was obtained. ? Risks associated with the procedure were discussed with the patient including but not limited to bleeding, infection, drug reactions and reactions to the topical anesthetic. Patient made aware of signs to look out for infectious complications. The area of interest was identified and confirmed with patient. ?This was subsequently cleaned with chlorhexidine x3. ? The area was then anesthetized using ethyl chloride spray. 40 mg Kenalog with 1 cc 1% lidocaine was injected without issue. ?Minimal to no bleeding. ?Patient tolerated procedure. Primary Site: left shoulder Prep: site was prepped using aseptic technique and ethochloride spray was applied Injected: 40 mg of, Kenalog, with 1 mL of, 1% plain lidocaine and in the subcromial space Procedure: The patient tolerated the procedure well Coding 30151 - Glenohumeral/Tronchanteric Bursa/Intraarticular Procedure code (CPT) selection complete Office Meds lidocaine (PF) 10 mg/mL (1 %) injection solution Performing Provider: Nikki Rachel MD Per[place] [facility] Administered by: Nikki Rachel MD on 02/03/25 09:32 Dose Route Admin Location Dispensed Lot Number Expiration Date [facility] [employer] 1 mL Infiltration right shoulder 2 mL [id number] 10/17/26 96954-088-03 [employer] Total Dispensed Waste 2 mL 50 % Kenalog 40 mg/mL suspension for injection Performing Provider: Nikki Rachel MD Performing Location[place] [facility] Administered by: Nikki Rachel MD on 02/03/25 09:32 Dose Route Admin Location Dispensed Lot Number Expiration Date [facility] [employer] 40 mg intrabursal right shoulder 1 mL [id number] 12/17/25 [address]-6 [employer] Total Dispensed Waste 1 mL 0 % lidocaine (PF) 10 mg/mL (1 %) injection solution Performing Provider: Nikki Rachel MD Performing Location: [facility] Administered by: Nikki Rachel MD on 02/03/25 09:32 Dose Route Admin Location Dispensed Lot Number Expiration Date [facility] [employer]er 1 mL Infiltration left shoulder 2 mL [id number] 10/17/26 73868-662-98 [employer] Total Dispensed Waste 2 mL 50 % Kenalog 40 mg/mL suspension for injection Performing Provider: Nikki Rachel MD Performing Location: [facility] Administered by: Nikki Rachel MD on 02/03/25 09:32 Dose Route Admin Location Dispensed Lot Number Expiration Date [facility] [employer]er 40 mg intrabursal left shoulder 1 mL [id number] 12/17/25 [address]-3 [employer]NE[employer] Total Dispensed Waste 1 mL 0 % Results Reviewed Results Reviewed: Laboratory Tests 11/09/23 11/09/23 09:15 09:18 WBC 7.3 RBC 5.09 Hgb 15.4 Hct 44.0 Plt Count 201 Sodium 142 Potassium 4.3 Chloride 106 Carbon Dioxide 26 BUN 12 Creatinine 0.98 C-Reactive Protein < 0.10 Rheumatoid Factor < 13.0 Cycl Citrul Peptide IgG <16 DONTAE Screen POSITIVE A DONTAE Titer 1:40 H XR C spine, Bilateral shoulders, Bilateral knees 01/2024 FINDINGS: Cervical Spine: Mild degenerative changes with loss of disc space height at C5-C6. Limited visualization of C7 due to overlying bony and soft tissue structures. Alignment preserved. Left Shoulder: Mild osteoarthritic changes in the acromioclavicular joint. Glenohumeral alignment preserved. No abnormal soft tissue calcifications appreciated adjacent to the humeral head. Mild hypertrophic change along the inferior aspect of the glenoid. Right Shoulder: Mild osteoarthritic changes in the acromioclavicular joint. Glenohumeral alignment preserved. Amorphous soft tissue calcification adjacent to the right greater tuberosity suggests rotator cuff pathology. Right Knee: Moderate right joint effusion. Mild narrowing of the medial compartment with tiny medial marginal and posterior patellar osteophytes. Left Knee: Moderate joint effusion. Mild narrowing of the medial compartment with tiny medial marginal and posterior patellar osteophytes. X Bilateral Hands 10/2023 FINDINGS: The bones and soft tissues are normal. No acute fracture or dislocation is seen. There is old, healed fracture of the shaft of the right fifth metacarpal bone, with mild residual angulation and bony remodeling. Alignment is anatomic. There is a neutral ulnar variance. Joint spaces are maintained. No erosions or soft tissue calcifications. MR Right Shoulder 12/2024 FINDINGS: Rotator Cuff and Biceps Tendon: Supraspinatus: Intact without evidence of tear. There is mild increased signal consistent with mild tendinopathy. The muscle belly is normal. Infraspinatus: There is oval soft tissue calcification measuring 11 x 6 x 5 mm within the anterior superior tendon abutting the footplate attachment, consistent with calcific tendinopathy. (Series 8, image 17; series 9, image 23). There is no associated discrete tear although there is increased signal within the tendon consistent with mild to moderate tendinopathy. Subscapularis: Intact without definite tear. Mild changes of tendinopathy. Muscle belly is normal. Teres Minor: Intact and normal in signal. The muscle belly is normal. Biceps Long Head: Normally located within the bicipital groove. Normal morphology. The tendon in the rotator interval is normal in signal and morphology. [place] is intact. AC Joint and Acromiohumeral Arch: There is mild to moderate predominantly superior surface spurring of the AC joint with capsular distention and mild periarticular edema. There is no significant undersurface spurring. There is no supraspinatus outlet impingement. There is a type II acromion. Subacromial space is preserved. No undersurface spurring. Glenohumeral Joint and Labrum: There is normal fluid within the glenohumeral joint. There is a normal-appearing cartilage without significant cartilage defect or significant degenerative arthritis. There is no subchondral bone plate edema identified. There is irregular signal within the superior labrum extending into the superior anterior labral region suggestive of labral tearing. Otherwise the remainder of the labrum appears intact without discrete tear. Osseous Structures: No additional abnormal signal or edema to suggest contusion, fracture, or bone lesion. Spino-glenoid Notch: Normal. Quadrilateral Space: Normal. Other: Glenohumeral ligaments are intact, without significant thickening. There is signal and small volume fluid within the subacromial/subdeltoid bursa, findings consistent with mild to moderate bursitis. IMPRESSION: 1. 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 2. There is no discrete supraspinatous, infraspinatus, or subscapularis tear. There is mild tendinopathy all 3 tendons present. 3. There is mild to moderate subacromial/subdeltoid bursitis. 4. Suspect superior labral tearing. 5. No pathology of the long head of the biceps tendon. 6. There is moderate arthritis of the AC joint with predominantly superior surface spurring present. Assessment & Plan Assessment & Plan (1) Subacromial bursitis of left shoulder joint: Code(s): M75.52 - Bursitis of left shoulder Category: Medical Plan: #Subacromial bursitis Patient with bilateral early AC joint osteoarthritis as confirmed on x-ray. This is complicated by bilateral subacromial bursitis. MRI of the right shoulder showed calcific tendinitis, AC joint OA as well as a potential labral tear. Has a follow up with ortho and encouraged him to keep it. Plan - S/p steroid injection bilateral subacromial bursa - Follow up 4- months (2) Polyarticular osteoarthritis: Code(s): M15.9 - Polyosteoarthritis, unspecified Category: Medical Plan: #Polyarticular OA Patient with polyarticular osteoarthritis. This was likely precipitated by his job. Currently doing conservative management (3) DONTAE positive: Code(s): R76.8 - Other specified abnormal immunological findings in serum Category: Medical Plan: #Positive DONTAE The presence of antinuclear antibodies (DONTAE) is mainly associated with connective tissue diseases (CTD). ?However, their presence is found in healthy people especially in women and patients >65. ?In healthy individuals, the frequency of DONTAE has been shown to be 31.7% of individuals at 1:40 serum dilution, 13.3% at 1:80, 5.0% at 1:160, and 3.3% at 1:320 (2). Some drugs and xenobiotics are also important for the development of DONTAE (hydralazine, hydrochlorothiazide, minocycline, terbinafine, ciprofloxacin, furosemide, omeprazole). Moreover, the deficiency of vitamin D in the body of patients correlates with occurrence of these antibodies (1). At this time there is low suspicion for a connective tissue disease. ? 1. Anna?amandeep Zacarias, Jeannine Dyer, Андрей Desouza. Antinuclear antibodies in healthy people and non-rheumatic diseases - diagnostic and clinical implications. Reumatologia. 2018;56(4):243-248. doi: 10.5114/reum.2018.01340. Epub 2017Apr 18. PMID: 54696540; PMCID: [id number]. 2. Irwin EM, Charla TE, Emily JS, Laura B, Junaid R, Doris MJ, Trung T, Isatu JA, Derian JR, Candi RG, Zahira RN, Rojas JS, Anya NF, John RJ, Takviki Y, Erik A, Ray MR, Brendon AYON. Range of antinuclear antibodies in healthy individuals. Arthritis Rheum. 1996;40(9):1601-11. doi: 10.1002/art.0281410312. PMID: 9197965. Plan I spent 20 minutes reviewing the record and labs, taking a history, examining the patient, discussing the treatment plan and documenting in the medical record Orders: Orders AMB Joint Injection/Aspiration Today M75.51 - Bursitis of right shoulder, M75.52 - Bursitis of left shoulder AMB Joint Injection/Aspiration Today M75.51 - Bursitis of right shoulder, M75.52 - Bursitis of left shoulder Coding Level of Care Code Est Pt Level 3 (81178) Diagnoses Subacromial bursitis of left shoulder joint M75.52 Polyarticular osteoarthritis M15.9 DONTAE positive R76.8 CPT Codes Coding - Joint 7: 31537 - Glenohumeral/Tronchanteric Bursa/Intraarticular ([id number]) Coding - Joint 7: 94418 - Glenohumeral/Tronchanteric Bursa/Intraarticular ([id number])
[2025-02-03 08:28] VITALS: BP 124/80; PULSE 70; O2SAT 99; BMI 28.5
--- OUTSIDE RECORDS SUMMARY | 2025-02-03 08:35 | XMS_ITS | Clinical Summary ---
Author Organization [employer] Address [address] [place] [address] Care Team Providers Care Air Tucker Name Role Phone Unavailable Primary Care Provider Unavailabl e Immunizations Immunization Administration Dates Next Due Moderna Covid-19 Vaccine [...] 1981 Lipid Panel 1981 SDOH Screening 1981 Disability Screening 1981 Alcohol/Substance Use Screening 1993 Tobacco Screening 1993 Family Planning (PISQ) 1996 Hepatitis C Screening 11/22/1999 DTaP/Tdap/Td Vaccines (1 - Tdap) 2000 Hepatitis B Vaccines (1 of 3 - 19+ 3-dose series) 2000 COVID-19 Vaccine (2 - 2023-2 5 season) 2024 08/16/2022 Influenza Vaccine (Season Ended) 2025 Zoster Vaccines (1 of 2) 11/22/2031 RSV [...] patient's age to complete this topic Meningococcal B Vaccine Aged Out No l onger eligible based on patient's age to complete this topic Meningococcal Vaccine Aged Out No chandler yuki eligible based on patient's age to complete this topic Pneumococcal Vaccine: Pediat rics (0 to 5 Years) and At-Risk Patients (6 to 49) Years Aged Out No longer eligi ble based on patient's age to complete this topic RSV under 20 months Aged Out No longe r eligible based on patient's age to complete this topic Rotavirus Vaccines Aged Out No longer eligible based on patient's age to complete this topic Insurance [employer] PPO
== END 2025-02-03 09:14 | disposition home or self-care (01) ==
LOC: HO.RHE 08:20
PROVIDERS: PCP Internal Medicine; Visit Provider Student in an Organized Health Care Education/Training Program
DX: M75.52 Bursitis of left shoulder (principal); M15.9 Polyosteoarthritis, unspecified; R76.8 Other specified abnormal immunological findings in serum; M75.51 Bursitis of right shoulder
CPT/HCPCS: 20610; 99213

== ENCOUNTER → 2025-02-03 08:19 | Outpatient (BNVA) | payer OTHER, SELFPAY | PROVIDERS: PCP Internal Medicine; Visit Provider Student in an Organized Health Care Education/Training Program | DX: M75.51 Bursitis of right shoulder (principal); M75.52 Bursitis of left shoulder | CPT/HCPCS: 20610; J3300 ==

== ENCOUNTER 2025-03-16 13:37 | Outpatient (AMB) | payer OTHER, SELFPAY ==
--- NOTE | 2025-03-16 13:46 | MHC.OFFVIS ---
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 Patient [place] [facility] [place]03[place] where he was given bilateral shoulder cortisone injections. At today's visit he states that he has had B/L shoulder pain for about a year, recently the left shoulder has flared up. Patient states that he has tried physical therapy and stopped due to the pain, injections did help but wore off. He has tried Tylenol and anti-inflammatory medicines which gave him mild relief. He continues to do quite a bit of lifting at his job. Allergies sertraline Adverse Reaction (Unknown, Verified 03/16/25 13:50) felt numb SERTRALINE Adverse Reaction (Unknown, Uncoded 10/30/24 09:50) FELT NUMB Wellbutrin Adverse Reaction (Unknown, Uncoded 10/30/24 09:50) sexual side effects, felt like a robot Medication List - Last Reconciled 03/16/25 by Aki Forman MD ketoconazole 400 mg (2 x 200 mg) PO DAILY venlafaxine ER (Effexor XR) 75 mg PO DAILY PFSH Medical History Polyarticular osteoarthritis Subacromial bursitis of left shoulder joint Family History (Reviewed 02/03/25 @ 08:28 by Barbara Wharton [facility]) Father Hypertension Mother Breast cancer Social History (Updated 03/16/25 @ 13:52 by Marissa Stauffer) Household Members 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:: , 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, 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: House Alcohol intake: former Patient Tobacco Use Status: Former Tobacco user (vape ) e-Cigarette/Vaping Use: Currently Using service: No Current occupational status: employed 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) Cognitive needs: No Hearing needs: No Vision needs: Yes Physical Exam Vital Signs: BMI result Body Mass Index 27.1 Const Other: Well-nourished well-developed very friendly male awake alert and oriented x3 in no acute distress Extrem Other: Left shoulder examination shows full range of motion when compared to his right shoulder, 5/5 strength with supraspinatus testing, positive impingement signs, tenderness over his acromioclavicular joint, no instability Results Reviewed Results Reviewed: MRI of the patient's left shoulder show severe acromioclavicular joint narrowing, a type 2 acromion, a small calcium deposit within the supraspinatus tendon Assessment & Plan Assessment & Plan (1) Shoulder pain, left: Code(s): M25.512 - Pain in left shoulder Category: Medical Plan Mr. Lovett presents with bilateral shoulder pains, left greater than right, due to impingement syndrome, acromioclavicular joint arthritis and calcific tendinitis. I had a lengthy discussion with the patient regarding the treatment options. He wishes to hold off on surgery if at all possible. I agree with this plan. We will hold off on another cortisone injection because he was given an injection last month. I did give him a prescription for a Medrol Dosepak. He will continue with his activity modifications and stretching exercises. He will contact me prior to his follow-up appointment in 2 months should any questions or concerns arise. Feel free to call me at any time should questions regarding his orthopedic management arise. I spent 21 minutes in reviewing the patient's records and imaging studies, seeing the patient and documenting in the medical record. Medications: New methylprednisolone (Medrol (Francisco)) PO PER PKG DIR 21 ea 0RF Coding Level of Care Code New Pt Level 3 (43311) Complex EM visit Add On G2211 Diagnoses Shoulder pain, left M25.512
[2025-03-16 13:47] VITALS: BMI 27.1
--- OUTSIDE RECORDS SUMMARY | 2025-03-16 14:26 | XMS_ITS | Clinical Summary ---
Author Organization [employer] Address [address] [place] [address] Care Team Providers Care Engineer Of System Development Name Role Phone Unavailable Primary Care Provider [...] Tobacco Screening 1993 Family Planning (PISQ) 1996 HPV Vaccines (1 - Male 3-dos e series) 1996 Hepatitis C Screening 11/22/1999 DTaP/Tdap/Td Vaccines (1 - Tdap) 2000 Hepatitis B Vaccines (1 of 3 - 19+ 3-dose series) 2000 COVID-19 Vaccine (2 - 2023-2 5 season) 2024 08/16/2022 Influenza Vaccine (#1) 2025 Zoster Vaccines (1 of 2) 11/22/2031 [...]
== END 2025-03-16 14:22 | disposition home or self-care (01) ==
LOC: HO.HOS 13:37
PROVIDERS: PCP Internal Medicine; Visit Provider Orthopaedic Surgery
DX: M25.512 Pain in left shoulder (principal)
CPT/HCPCS: 99203; G2211

== ENCOUNTER 2025-06-08 07:27 | Outpatient (AMB) | payer OTHER, SELFPAY ==
--- OUTSIDE RECORDS SUMMARY | 2025-06-08 07:30 | XMS_ITS | Clinical Summary ---
Author Organization [employer] Address [address] [facility] [address] [place] [address] Care Team Providers Care Director Of Head Start Name Role Phone Unavailable Primary Care Provider [...] 3-dose series) 2000 COVID-19 Vaccine (2 - 2024-2 6 season) 2025 08/16/2022 Influenza Vaccine (#1) 2025 Zoster Vaccines [...]
--- NOTE | 2025-06-08 07:39 | MHC.OFFVIS ---
Vital Signs 06/08/25 07:47 Height 6 ft Weight 209 lb 10.554 oz BMI 28.4 BP 134/90 H Blood Pressure Location Lt brachial Position Sitting Pulse 76 Pulse Source Pulse Oximeter Pulse Oximetry (%) 99 Oxygen Delivery Method Room Air Intake Visit Reasons: follow up Intake Note: Patient presents for shoulder pain and injection follow up. Allergies sertraline Adverse Reaction (Unknown, Verified 06/08/25 07:46) felt numb SERTRALINE Adverse Reaction (Unknown, Uncoded 10/30/24 09:50) FELT NUMB Wellbutrin Adverse Reaction (Unknown, Uncoded 10/30/24 09:50) sexual side effects, felt like a robot HPI Comments Details: Patient is a 43-year-old male with hyperlipidemia, anxiety, degenerative arthritis and ?fibromyalgia who presents today for follow up. Interval History: Patient last seen 02/03/25 - Not on any rheum meds - Bilateral shoulder pain - Consistent with early degenerative disease and rotator cuff tendinopathy - Received bilateral subacromial bursa injections Today - Not on any rheum meds - Saw ortho, plans for surgery next year - Injections helped - Requesting another series today - Did a medrol pack from ortho but only lasted about 1 month Rheumatologic History: Degenerative arthritis/? Fibromyalgia Initial history: This is a 43-year-old male who presents for evaluation of positive DONTAE in the setting of polyarthralgias. The condition started about 15 years ago with bilateral hand and wrist pain, the pain is usually worse with minor activity such as holding his phone but he has no issues with doing more strenuous activity such as moving boxes. He has tried numerous therapies over the years such as wtkb-pfp-tkipxul pain killers like Tylenol Advil, Aleve, he also tried CBD oil, vibrating crystals, glucosamine, fish oil, hot and cold compresses. None of that helped. He tried wrist splints they did not help. He also received injections on the palmar aspect of his wrists which did not help, 1 injection cause numbness so he stopped getting injections. Stated that what sometimes helps is hand and wrist compresses at night. What got him concerned is bilateral shoulder stiffness and cracking with certain movements that started about 8 months ago also intermittent right knee cracking and pain. Denies any joint swelling. Denies any morning stiffness. States that he gets a rash in areas where he sweats 2 to 3 times a year that rapidly goes away with ketoconazole. He is unaware of any family history of an autoimmune rheumatic disease. Denies any history of DVT/PE. Denies any fevers or weight loss. 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) Cognitive needs: No Hearing needs: No Vision needs: Yes Review of Systems Narrative Review of Systems Constitutional: Denies fever, chills, weight loss ENT: Denies vision changes, eye pain or eye redness, dental caries, dry mouth GI: Denies nausea, vomiting, diarrhea, abdominal pain, change in BM Pulm: Denies SOB, RG, hemoptysis, wheezing Cards: Denies chest pain, palpitations Skin: Denies Raynaud's, rash, nail changes, photosensitivity, PATIENT SUPPORT PARTNER: Denies headaches, weakness, paresthesias, recurrent falls MSK: as per HPI All other systems reviewed and are unremarkable except noted above Physical Exam Exam Exam: Vital signs reviewed Physical Examination CONSTITUITIONAL Patient alert and cooperative. Well appearing and in no apparent painful distress MSK Hands Right Hand: Able to make a fist. No swelling or tenderness to palpation of the MCPs, PIPs or DIPs. No deformities noted. Left Hand: Able to make a fist. No swelling or tenderness to palpation of the MCPs, PIPs or DIPs. No deformities noted. Wrists Right Wrist: Full ROM to flexion and extension. No swelling or TTP Left Wrist: Full ROM to flexion and extension. No swelling or TTP Elbows Right Elbow: Full ROM. No swelling or TTP. No TTP of the medial epicondyle. No TTP of the lateral epicondyle Left Elbow: Full ROM. No swelling or TTP. No TTP of the medial epicondyle. No TTP of the lateral epicondyle Shoulders Right shoulder: decreased ROM. No swelling noted. No TTP of the AC joint. TTP of the subacromial bursa. No TTP of the posterior shoulder Left shoulder: Full ROM. No swelling noted. No TTP of the AC joint. TTP of the subacromial bursa. No TTP of the posterior shoulder Positive rotator cuff impingement bilaterally Knees Right knee: Full ROM. No swelling noted. No TTP of the knee joint line. No TTP of pes anserine bursa Left knee: Full ROM. No swelling noted. No TTP of the knee joint line. No TTP of pes anserine bursa. Ankles Right ankle: Good ankle dorsiflexion and plantar flexion. No swelling. No TTP of the ankle joint Left ankle: Good ankle dorsiflexion and plantar flexion. No swelling. No TTP of the ankle joint Feet Right foot: Negative squeeze test Left foot: Negative squeeze test Tender points? No tenderness to palpation of the bilateral trapezius, supraspinatus, anterior costochondral junctions, bilateral suboccipital muscle insertions SKIN rash on right outer elbow consistent with contact dermatitis Vital Signs: Last Vital Signs Pulse 76 06/08/25 07:47 BP 134/90 H 06/08/25 07:47 Pulse Ox 99 06/08/25 07:47 Oxygen Delivery Method Room Air 06/08/25 07:47 BMI result Body Mass Index 28.4 Office Procedures AMB Joint Injection/Aspiration Joint Injection/Aspiration Details: Procedure was explained to the patient and informed consent was obtained. ? Risks associated with the procedure were discussed with the patient including but not limited to bleeding, infection, drug reactions and reactions to the topical anesthetic. Patient made aware of signs to look out for infectious complications. The area of interest was identified and confirmed with patient. ?This was subsequently cleaned with chlorhexidine x 2. ? The area was then anesthetized using ethyl chloride spray. 40 mg Kenalog with 1 cc 1% lidocaine was injected without issue. ?Minimal to no bleeding. ?Patient tolerated procedure. Primary Site: right shoulder (Right subacromial bursa) Prep: site was prepped using aseptic technique and ethochloride spray was applied Injected: 40 mg of, Kenalog, with 1 mL of, 1% plain lidocaine and in the subcromial space Procedure: The patient tolerated the procedure well Coding 46547 - Glenohumeral/Tronchanteric Bursa/Intraarticular Procedure code (CPT) selection complete AMB Joint Injection/Aspiration Joint Injection/Aspiration Details: Procedure was explained to the patient and informed consent was obtained. ? Risks associated with the procedure were discussed with the patient including but not limited to bleeding, infection, drug reactions and reactions to the topical anesthetic. Patient made aware of signs to look out for infectious complications. The area of interest was identified and confirmed with patient. ?This was subsequently cleaned with chlorhexidine x 2. ? The area was then anesthetized using ethyl chloride spray. 40 mg Kenalog with 1 cc 1% lidocaine was injected without issue. ?Minimal to no bleeding. ?Patient tolerated procedure. Primary Site: left shoulder (Left subacromial bursa) Prep: site was prepped using aseptic technique and ethochloride spray was applied Injected: 40 mg of, Kenalog, with 1 mL of, 1% plain lidocaine and in the subcromial space Coding 65307 - Large joint 67506 - Glenohumeral/Tronchanteric Bursa/Intraarticular Procedure code (CPT) selection complete Office Meds lidocaine (PF) 10 mg/mL (1 %) injection solution Performing Provider: Nikki Rachel MD Performing Location: [facility] – [place] [facility] Administered by: Irish Higuera RN on 06/08/25 08:14 Dose Route Admin Location Dispensed Lot Number Expiration Date [facility] Mapping Engineer 1 mL Infiltration Right subacromial bursa 2 mL [id number] 01/16/27 43463-473-51 [employer] Total Dispensed Waste 2 mL 50 % Kenalog 40 mg/mL suspension for injection Performing Provider: Nikki Rachel MD Performing Location: [facility] – [place] [facility] Administered by: Irish Higuera RN on 06/08/25 08:14 Dose Route Admin Location Dispensed Lot Number Expiration Date [facility] Mapping Engineer 40 mg intrabursal Right subacromial bursa 1 mL [id number] 02/15/27 [address]-7 [employer] Total Dispensed Waste 1 mL 0 % lidocaine (PF) 10 mg/mL (1 %) injection solution Performing Provider: Nikki Rachel MD Performing Location: [facility] – [place] [facility] Administered by: Irish Higuera RN on 06/08/25 08:14 Dose Route Admin Location Dispensed Lot Number Expiration Date [facility] Mapping Engineer 1 mL Infiltration Left subacromial bursa 2 mL [id number] 01/16/27 15669-834-51 [employer] Total Dispensed Waste 2 mL 50 % Kenalog 40 mg/mL suspension for injection Performing Provider: Nikki Rachel MD Performing Location: [facility] – [place] [facility] Administered by: Irish Higuera RN on 06/08/25 08:14 Dose Route Admin Location Dispensed Lot Number Expiration Date [facility] Mapping Engineer 40 mg intrabursal Left subacromial bursa 1 mL [id number] 02/15/27 [address]-7 [employer] Total Dispensed Waste 1 mL 0 % Results Reviewed Results Reviewed: Laboratory Tests 11/09/23 11/03/24 09:15 06:52 WBC 7.5 RBC 5.00 Hgb 15.1 Hct 43.9 Plt Count 198 Sodium 143 Potassium 4.4 Chloride 108 Carbon Dioxide 27 BUN 15 Creatinine 0.85 AST 28 ALT 33 C-Reactive Protein < 0.10 Laboratory Tests 11/09/23 09:15 Rheumatoid Factor < 13.0 Cycl Citrul Peptide IgG <16 DONTAE Screen POSITIVE A DONTAE Titer 1:40 H XR C spine, Bilateral shoulders, Bilateral knees 01/2024 FINDINGS: Cervical Spine: Mild degenerative changes with loss of disc space height at C5-C6. Limited visualization of C7 due to overlying bony and soft tissue structures. Alignment preserved. Left Shoulder: Mild osteoarthritic changes in the acromioclavicular joint. Glenohumeral alignment preserved. No abnormal soft tissue calcifications appreciated adjacent to the humeral head. Mild hypertrophic change along the inferior aspect of the glenoid. Right Shoulder: Mild osteoarthritic changes in the acromioclavicular joint. Glenohumeral alignment preserved. Amorphous soft tissue calcification adjacent to the right greater tuberosity suggests rotator cuff pathology. Right Knee: Moderate right joint effusion. Mild narrowing of the medial compartment with tiny medial marginal and posterior patellar osteophytes. Left Knee: Moderate joint effusion. Mild narrowing of the medial compartment with tiny medial marginal and posterior patellar osteophytes. X Bilateral Hands 10/2023 FINDINGS: The bones and soft tissues are normal. No acute fracture or dislocation is seen. There is old, healed fracture of the shaft of the right fifth metacarpal bone, with mild residual angulation and bony remodeling. Alignment is anatomic. There is a neutral ulnar variance. Joint spaces are maintained. No erosions or soft tissue calcifications. MR Right Shoulder 12/2024 FINDINGS: Rotator Cuff and Biceps Tendon: Supraspinatus: Intact without evidence of tear. There is mild increased signal consistent with mild tendinopathy. The muscle belly is normal. Infraspinatus: There is oval soft tissue calcification measuring 11 x 6 x 5 mm within the anterior superior tendon abutting the footplate attachment, consistent with calcific tendinopathy. (Series 8, image 17; series 9, image 23). There is no associated discrete tear although there is increased signal within the tendon consistent with mild to moderate tendinopathy. Subscapularis: Intact without definite tear. Mild changes of tendinopathy. Muscle belly is normal. Teres Minor: Intact and normal in signal. The muscle belly is normal. Biceps Long Head: Normally located within the bicipital groove. Normal morphology. The tendon in the rotator interval is normal in signal and morphology. Magnolia is intact. AC Joint and Acromiohumeral Arch: There is mild to moderate predominantly superior surface spurring of the AC joint with capsular distention and mild periarticular edema. There is no significant undersurface spurring. There is no supraspinatus outlet impingement. There is a type II acromion. Subacromial space is preserved. No undersurface spurring. Glenohumeral Joint and Labrum: There is normal fluid within the glenohumeral joint. There is a normal-appearing cartilage without significant cartilage defect or significant degenerative arthritis. There is no subchondral bone plate edema identified. There is irregular signal within the superior labrum extending into the superior anterior labral region suggestive of labral tearing. Otherwise the remainder of the labrum appears intact without discrete tear. Osseous Structures: No additional abnormal signal or edema to suggest contusion, fracture, or bone lesion. Spino-glenoid Notch: Normal. Quadrilateral Space: Normal. Other: Glenohumeral ligaments are intact, without significant thickening. There is signal and small volume fluid within the subacromial/subdeltoid bursa, findings consistent with mild to moderate bursitis. IMPRESSION: 1. 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 2. There is no discrete supraspinatous, infraspinatus, or subscapularis tear. There is mild tendinopathy all 3 tendons present. 3. There is mild to moderate subacromial/subdeltoid bursitis. 4. Suspect superior labral tearing. 5. No pathology of the long head of the biceps tendon. 6. There is moderate arthritis of the AC joint with predominantly superior surface spurring present. Assessment & Plan Assessment & Plan (1) Subacromial bursitis of left shoulder joint: Code(s): M75.52 - Bursitis of left shoulder Category: Medical Plan: #Subacromial bursitis Patient is a 44-year-old male with bilateral early AC joint osteoarthritis as confirmed on x-ray. This is complicated by bilateral subacromial bursitis and rotator cuff tendinopathy. MRI of the right shoulder showed calcific tendinitis, AC joint OA as well as a potential labral tear. Plan - S/p steroid injection bilateral subacromial bursa - Follow up 4 months (2) Polyarticular osteoarthritis: Code(s): M15.9 - Polyosteoarthritis, unspecified Category: Medical Plan: #Polyarticular OA Patient with polyarticular osteoarthritis. This was likely precipitated by his job. Currently doing conservative management (3) DONTAE positive: Code(s): R76.8 - Other specified abnormal immunological findings in serum Category: Medical Plan: #Positive DONTAE The presence of antinuclear antibodies (DONTAE) is mainly associated with connective tissue diseases (CTD). ?However, their presence is found in healthy people especially in women and patients >65. ?In healthy individuals, the frequency of DONTAE has been shown to be 31.7% of individuals at 1:40 serum dilution, 13.3% at 1:80, 5.0% at 1:160, and 3.3% at 1:320 (2). Some drugs and xenobiotics are also important for the development of DONTAE (hydralazine, hydrochlorothiazide, minocycline, terbinafine, ciprofloxacin, furosemide, omeprazole). Moreover, the deficiency of vitamin D in the body of patients correlates with occurrence of these antibodies (1). At this time there is low suspicion for a connective tissue disease. ? 1. Anna?amandeep Zacarias, Jeannine Dyer, Андрей Desouza. Antinuclear antibodies in healthy people and non-rheumatic diseases - diagnostic and clinical implications. Reumatologia. 2018;56(4):243-248. doi: 10.5114/reum.2018.30588. Epub 2017Apr 18. PMID: [id number]; PMCID: [id number]. 2. Irwin EM, Charla TE, Emily JS, Laura B, Junaid R, Doris MJ, Trung T, Isatu JA, Derian JR, Candi RG, Zahira RN, Rojas JS, Anya NF, John RJ, Ahsan Y, Erik A, Ray MR, Brendon AYON. Range of antinuclear antibodies in healthy individuals. Arthritis Rheum. 1996;40(9):1601-11. doi: 10.1002/art.8516042340. PMID: 5873902. Plan I spent 20 minutes reviewing the record and labs, taking a history, examining the patient, discussing the treatment plan and documenting in the medical record Orders: Orders AMB Joint Injection/Aspiration Today M75.52 - Bursitis of left shoulder AMB Joint Injection/Aspiration Today M75.51 - Bursitis of right shoulder Coding Level of Care Code Est Pt Level 3 (41335) Diagnoses Subacromial bursitis of left shoulder joint M75.52 Polyarticular osteoarthritis M15.9 DONTAE positive R76.8 CPT Codes Coding - Joint 7: 85838 - Glenohumeral/Tronchanteric Bursa/Intraarticular ([id number]) Coding - 95923 Large joint: 12966 - Large joint ([id number]) Coding - Joint 7: 41838 - Glenohumeral/Tronchanteric Bursa/Intraarticular ([id number])
[2025-06-08 07:47] VITALS: BP 134/90; PULSE 76; O2SAT 99; BMI 28.4
== END 2025-06-08 08:16 | disposition home or self-care (01) ==
LOC: HO.RHES 07:28
PROVIDERS: PCP Internal Medicine; Visit Provider Student in an Organized Health Care Education/Training Program
DX: M75.52 Bursitis of left shoulder (principal); M75.51 Bursitis of right shoulder; M15.9 Polyosteoarthritis, unspecified; R76.89 Other specified abnormal immunological findings in serum
CPT/HCPCS: 20610; 99213

== ENCOUNTER → 2025-06-08 07:27 | Outpatient (BNVA) | payer OTHER, SELFPAY | PROVIDERS: PCP Internal Medicine; Visit Provider Student in an Organized Health Care Education/Training Program | DX: M75.51 Bursitis of right shoulder (principal); M75.52 Bursitis of left shoulder | CPT/HCPCS: 20610; J2003; J3301 ==

== ENCOUNTER 2025-06-16 14:27 | Outpatient (AMB) | payer OTHER, SELFPAY ==
--- NOTE | 2025-06-16 14:29 | A.OFFVIS_ITS ---
Intake Visit Reasons: OV- Left shoulder follow up Intake Note: Maksim is a 44 year old male who presents today as a follow up for his left shoulder. Patient reported that he had a cortisone injection about two weeks ago that gave him relief. He states that his ROM is improving. He continues with his home stretching program. Allergies sertraline Adverse Reaction (Unknown, Verified 06/08/25 07:46) felt numb SERTRALINE Adverse Reaction (Unknown, Uncoded 10/30/24 09:50) FELT NUMB Wellbutrin Adverse Reaction (Unknown, Uncoded 10/30/24 09:50) sexual side effects, felt like a robot Medication List - Last Reconciled 06/16/25 by Aki Forman MD ketoconazole 400 mg (2 x 200 mg) PO DAILY methylprednisolone (Medrol (Francisco)) PO PER PKG DIR venlafaxine ER (Effexor XR) 75 mg PO DAILY PFSH Medical History Polyarticular osteoarthritis Subacromial bursitis of left shoulder joint Family History Father Hypertension Mother Breast cancer Social History Household Members 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:: , 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, 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: House Alcohol intake: former Patient Tobacco Use Status: Former Tobacco user (vape ) e-Cigarette/Vaping Use: Currently Using service: No Current occupational status: employed 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 Lovett presents with intermittent bilateral shoulder pains due to impingement syndrome. I had a lengthy discussion with the patient regarding the treatment options. At this point he continues to get good relief from cortisone injections. He wishes to hold off on surgery for now. The do's and don'ts of lifting were discussed at length with the patient. He will follow up with me on an as-needed basis should he stopped getting relief from the cortisone injections. Feel free to call me at any time should questions regarding his orthopedic management arise. I spent 21 minutes in reviewing the patient's records and imaging studies, seeing the patient and documenting in the medical record. Coding Level of Care Code Est Pt Level 3 (84236) Complex EM visit Add On G2211 Diagnoses Impingement syndrome of both shoulders M75.41; M75.42
--- OUTSIDE RECORDS SUMMARY | 2025-06-16 18:49 | XMS_ITS | Clinical Summary ---
Author Organization [employer] Address [address] [place] [address] Care Team Providers Care Dietary Services Director Name Role Phone Unavailable Primary Care Provider [...]
== END 2025-06-16 14:52 | disposition home or self-care (01) ==
PROVIDERS: PCP Internal Medicine; Visit Provider Orthopaedic Surgery
DX: M75.41 Impingement syndrome of right shoulder (principal); M75.42 Impingement syndrome of left shoulder
CPT/HCPCS: 99213; G2211